=== PATIENT | female | born 1965 | race Caucasian/White ===

== ENCOUNTER 2016-08-14 07:36 | Day surgery (SDC) | payer OTHER ==
[2016-08-08 14:31] VITALS: BMI 22.0; BMI 32.0
--- NOTE | 2016-08-08 14:32 | PAT Medication Instructions ---
Service Date Aug 08, 2016. Current Home Medication List Acetaminophen Tab (Tylenol), 650 MG PO QID B-Complex W/ C & Folic Acid (Triphrocaps), 10 MG PO QAM Baclofen (Lioresal), 20 MG PO TID Bisacodyl (Dulcolax), 1 SUPP [place] PRN UD Calcium Carbonate (Tums), 2 TAB PO QID PRN for RN Carbidopa/Levodopa (Sinemet 25MG/100MG), 1 TAB PO TID Chlorhexidine Gluconate (Mouth (Peridex), 10 ML TOP QAM Clonazepam (Klonopin), 0.5 MG PO TID [place] Tar Extract (Dhs Tar), 1 DOSE TOP WEEKLY Escitalopram Oxalate (Escitalopram Oxalate), 1 TAB PO QAM Fentanyl (Fentanyl), 37 MCG TOP Q72HRS Gabapentin (Neurontin), 300 MG PO TID Magnesium Hydroxide (Milk Of Magnesia), 30 ML PO PRN UD Omeprazole (Prilosec), 20 MG PO BID Ondansetron Hcl (Zofran), 4 MG PO Q6H PRN for N Polyethylene Glycol 3350 (Miralax), 17 GM PO QAM Sodium Phosphates (Enema), 1 RE PRN UD Tizanidine (Zanaflex), 2 MG PO 3XDAY [Baby Shampoo], 1 DOSE TOP DAILY PRN for RN [Roll On Pain Gel], 1 DOSE TOP BID Medication Instructions For Your Scheduled Surgery Fentanyl (Fentanyl), 37 MCG TOP Q72HRS (continue as usual; avoid surgical area for placement) - Hold the following medications 24 hours prior to surgery: [Roll On Pain Gel], 1 DOSE TOP BID [Baby Shampoo], 1 DOSE TOP DAILY PRN for RN [place] Tar Extract (Dhs Tar), 1 DOSE TOP WEEKLY Chlorhexidine Gluconate (Mouth (Peridex), 10 ML TOP QAM - Hold the following medications the morning of surgery: Sodium Phosphates (Enema), 1 RE PRN UD Polyethylene Glycol 3350 (Miralax), 17 GM PO QAM Magnesium Hydroxide (Milk Of Magnesia), 30 ML PO PRN UD Bisacodyl (Dulcolax), 1 SUPP [place] PRN UD Calcium Carbonate (Tums), 2 TAB PO QID PRN for RN Baclofen (Lioresal), 20 MG PO TID B-Complex W/ C & Folic Acid (Triphrocaps), 10 MG PO QAM - Take the following medications the morning of surgery with a sip of water: Tizanidine (Zanaflex), 2 MG PO 3XDAY Omeprazole (Prilosec), 20 MG PO BID Ondansetron Hcl (Zofran), 4 MG PO Q6H PRN for N Gabapentin (Neurontin), 300 MG PO TID Escitalopram Oxalate (Escitalopram Oxalate), 1 TAB PO QAM Clonazepam (Klonopin), 0.5 MG PO TID Carbidopa/Levodopa (Sinemet 25MG/100MG), 1 TAB PO TID Acetaminophen Tab (Tylenol), 650 MG PO QID - Take the following medications as scheduled the night before surgery: Tizanidine (Zanaflex), 2 MG PO 3XDAY Sodium Phosphates (Enema), 1 RE PRN UD Omeprazole (Prilosec), 20 MG PO BID Ondansetron Hcl (Zofran), 4 MG PO Q6H PRN for N Magnesium Hydroxide (Milk Of Magnesia), 30 ML PO PRN UD Gabapentin (Neurontin), 300 MG PO TID Clonazepam (Klonopin), 0.5 MG PO TID Carbidopa/Levodopa (Sinemet 25MG/100MG), 1 TAB PO TID Bisacodyl (Dulcolax), 1 SUPP [place] PRN UD Calcium Carbonate (Tums), 2 TAB PO QID PRN for RN Baclofen (Lioresal), 20 MG PO TID B-Complex W/ C & Folic Acid (Triphrocaps), 10 MG PO QAM Acetaminophen Tab (Tylenol), 650 MG PO QID If you have any questions please call us at [phone] (Claudette Fisher PA-C) or [phone] or [phone]
--- NOTE | 2016-08-12 14:14 | HISTORY & PHYSICAL EXAMINATION ---
DATE OF ADMISSION: 08/12/2016 Special attention to left hand contracture. HISTORY OF PRESENT ILLNESS: Alise is several years status post a stroke. She notes progressive contracture in the left hand with the inability to use her hand. She presents with a clenched fist and difficulty doing hygiene with her left hand. She has no complaints of numbness. She is a known patient of mine and has been seen by me over the past several years. PAST MEDICAL HISTORY: Includes status post stroke. MEDICATIONS: Carvedilol/levodopa, losartan, baclofen, gabapentin, fentanyl patch, milk of magnesia, tizanidine, ondansetron, escitalopram, MiraLax, clonazepam, Dulcolax, chlorhexidine as needed, omeprazole, Tums, aspirin. PAST MEDICAL HISTORY: Arthritis, anemia, melanoma, history of cerebrovascular accident, depression, high blood pressure, GERD, shortness of breath, history of DVT in the left foot and footdrop bilaterally. PAST SURGICAL HISTORY: Gallbladder surgery. ALLERGIES: VICODIN, OXYCODONE, PERCOCET, TRAMADOL. PHYSICAL EXAMINATION HEART: Regular rate and rhythm. LUNGS: Clear to auscultation. EXTREMITIES: Left hand exam exhibits spastically clenched fist deformity. She can flex and extend the thumb. She has no active or passive extension of the fingers and they are stuck in a flexed posture. Wrist is held in about 45 degrees of extension and does show some tightness as well. She does have active motion at the thumb with flexion and extension. She does show partial active flexion of the fingers. Fingers are actively digging into the palm. ASSESSMENT: 1. Several years status post a stroke affecting left side. 2. Spastically left clenched fist deformity. PLAN: I discussed treatment options with her and the family, it is reasonable to consider a fractional lengthening of the left hand likely FDS and FDP tendons. Plan for surgical intervention hopefully under block with sedation. Physical therapy 10-14 days afterwards. I discussed with her and family that I would not make the hand normal but limited goal of the procedure would be to allow her to have improved hygiene. IVAN
[~2016-08-14] VITALS: Ht 154.9 cm; Wt 76.0 kg
[~2016-08-14 07:36] MED LIST: ACET325T96 PO; B-COCAP28 PO; BABY SHAMPOO TOP; BACL20TA PO; BISA10SU3 PR; CALC500C3 PO; CARB25TA12 PO; CHLO0.1222 TOP; CLON0.5T3 PO; COALSHA TOP; DRGTP25 TOP; GABA-113 PO; LACTATED RINGER'S 1000ML 1,000 ML IV SCH; LXP10 PO; MOML PO; ONDA4TAB46 PO; POLY335019 PO; PRLSR20 PO; SODI1ENE4 RE; TIZA2CAP PO; [UNRECOGNIZED DRUG - OTHER] TOP
--- NOTE | 2016-08-14 07:52 | History & Physical Bridge Note ---
H&P Re-Evaluation Bridge Note: I have examined the patient, reviewed the History & Physical and in the interval since the performance of the History & Physical I have noted the following changes of clinical significance: No changes noted
[2016-08-14 08:03] VITALS: BP 157/110; PULSE 80; TEMP 37; O2SAT 95; Ht 154.9 cm; Wt 76.0 kg
[2016-08-14] MEDS ORDERED: NURSING VERBAL MED ORDER STA (08:35)
[2016-08-14] MEDS ORDERED: ROPIVACAINE 0.5% 5 MG/ML 30 ML VIAL ONE (08:48)
[2016-08-14] MEDS ORDERED: MIDAZOLAM HCL 1 MG/ML 2ML VIAL ONE ×2 (08:52→09:31)
[2016-08-14] MEDS ORDERED: FENTANYL CITRATE INJ 50 MCG/1 ML 2 ML VIAL ONE (08:53)
--- NOTE | 2016-08-14 08:58 | Discharge Instructions ---
Discharge Instructions Date of Service Aug 14, 2016. Visit Reason for Visit: Left Hand Spastic Contracture Discharge Discharge Diagnosis / Problem: status post left hand spastic contracture Discharge Goals Goal(s): Decrease discomfort, Improve function, Increase independence Activity Recommendations Activity Limitations: per Instructions/Follow-up section Anesthesia . Post Anesthesia Instructions: If you have had General Anesthesia or IV Sedation: * Do not drive today. * Resume driving when surgeon permits. * Do not make important decisions or sign legal documents today. * Call surgeon for: 1. Temperature elevations greater than 101 degrees F. 2. Uncontrollable pain. 3. Excessive bleeding. 4. Persistent nausea and vomiting. 5. Medication intolerance (nausea, vomiting or rash). * For nausea and vomiting use only clear liquids such as: tea, soda, bouillon until nausea subsides, then gradually increase diet as tolerated. * If you have any concerns or questions, call your surgeon's office. If physician is unavailable and it is an emergency, call 911 or go to the nearest emergency room. . Instructions / Follow-Up Instructions / Follow-Up ACTIVITY RECOMMENDATIONS: * Avoid lifting anything heavier than a medium water glass until your first post operative visit. SPECIAL CARE INSTRUCTIONS: * Your bandage should be left in place until 10-14 days. * Some drainage onto the dressing may occur. This is normal. * If the bandage feels excessively tight, you may loosen the elastic bandage. Then call the physician's office for further instructions. * If possible, keep your hand elevated above the level of your heart for the first 2 post operative days. You may use a sling if necessary. * You should move your fingers regularly (50-100 motions per hour) unless otherwise instructed. SPECIAL PRECAUTIONS: * If you notice increased drainage, fever over 101 degrees F. or severe, unremitting pain, call your physician/office at . * You may have been prescribed pain medication. If you experience nausea and/or skin rash, discontinue this medication and contact our office for an alternative medication. FOLLOW UP VISIT: If appointment is not already scheduled: 10-14 day follow up with [address]. duran Please call [facility] to make a follow-up appointment after your surgery at . Diet Recommendations Recommended Home Diet: resume previous diet Pending Studies Studies pending at discharge: no Medical Emergencies . Who to Call and When: Medical Emergencies: If at any time you feel your situation is an emergency, please call 911 immediately. . Non-Emergent Contact Non-Emergency issues call your: Primary Care Provider . . "Provider Documentation" section prepared by Yenifer Garcia.
[2016-08-14] MEDS ORDERED: CEFAZOLIN 1000MG/55 ML D5W IV SCH (09:00)
[2016-08-14] MEDS ORDERED: BUPIVACAINE/EPINEPHRINE 0.25% 1:200,000 30 ML VIAL ONE (09:27)
[2016-08-14] MEDS ORDERED: ATROPINE SULFATE 0.1 MG/ML 5ML SYR IV PRN (09:30)
[2016-08-14] MEDS ORDERED: NURSING VERBAL MED ORDER ONE (09:30)
[2016-08-14] MEDS ORDERED: ONDANSETRON INJ 2 MG/ML 2 ML VIAL IV PRN (09:30)
[2016-08-14] MEDS ORDERED: EpHEDrine SULFATE INJ 50 MG/ML AMP IV PRN (09:30)
[2016-08-14] MEDS ORDERED: FENTANYL CITRATE INJ 50 MCG/1 ML 2 ML VIAL IV PRN (09:30)
[2016-08-14] MEDS ORDERED: PROPOFOL IV EMULSION 10 MG/ML 20 ML VIAL IV ONE (09:50)
[2016-08-14] MEDS ORDERED: ONDANSETRON INJ 2 MG/ML 2 ML VIAL ONE (09:50)
[2016-08-14] MEDS ORDERED: DEXAMETHASONE SOD INJ 4 MG/ML VIAL ONE (09:50)
[2016-08-14] MEDS ORDERED: LIDOCAINE HCL 2% 2 ML VIAL (20MG/ML) ONE (09:50)
[2016-08-14] MEDS ORDERED: CARBIDOPA/LEVODOPA 25/100MG TAB PO ONE (10:00)
--- NOTE | 2016-08-14 10:15 | [facility] Post Operative Brief Note ---
Immediate Operative Summary Operative Date Aug 14, 2016. Pre-Operative Diagnosis Spastically left clenched fist deformity Post-Operative Diagnosis Spastically left clenched fist deformity Procedure(s) Performed Fractional lengthening at left Flexor digitorum superficialis tendon and flexor digitorum profundus tendon Surgeon Dr Eng Teleprinter Surgeon(s) Yenifer Garcia PA-C Estimated Blood Loss 2ml Findings flexor tendon contracture Specimens None per surgeon Anesthesia regiuonal block and sedation Complication(s) None
--- NOTE | 2016-08-14 10:51 | OPERATIVE REPORT ---
DATE OF OPERATION: 08/14/2016 PREOPERATIVE DIAGNOSIS: 1. Left spastic contracture, clenched fist contracture. 2. Left flexor tendon spasticity and contracture. POSTOPERATIVE DIAGNOSIS: Same. PROCEDURES: 1. Left fractional lengthening flexor digitorum superficialis index finger, middle finger, ring finger, small finger. 2. Left fractional lengthening flexor digitorum profundus index finger, middle finger, ring finger, small finger. SURGEON: Dr. Eng. CONFERENCE RESERVATIONIST: Yenifer Garcia PA-C who was necessary for prepping, draping, retraction, exposure and closure. ANESTHESIA: Regional block with sedation. INDICATIONS: This is a female who is approximately 3 years status post stroke. She presents with clenched deformity with difficulty with hygiene. She does have some active volitional flexion of the fingers. The risks and benefits have been discussed including, but not limited to, risk of infection, nerve injury, stiffness, loss of motion, failure to improve, etc. The patient is agreeable and wishes to proceed. OPERATION AND FINDINGS: DESCRIPTION OF OPERATION: I made a longitudinal incision over the mid to distal aspect of the forearm. Dissection was carried down through the skin and subcutaneous tissue. The fascial layer sharply incised, sensory nerve branches and neurovascular structures were protected. I identified the flexor digitorum superficialis tendons. These were tight. I performed fractional lengthening at the musculotendinous junction of the index finger, middle finger, ring finger, small finger. This did result in improvement in extension. She did have significant tightness and I felt that the FDP tendons were a contributing factor. I then performed fractional lengthening at the musculotendinous junction of the index, middle, ring and small finger flexor digitorum profundus tendons. This did result in improvement. I was able to stretch the fingers such that she had near full extension and flexion contracture of the PIP and MP joints did result in significant improvement in ability to obtain better hygiene for the patient. Incision was irrigated, tourniquet was let down, hemostasis was obtained with bipolar electrocautery. Subcutaneous layer was closed with 4-0 Monocryl, running 3-0 Prolene stitch was used on the skin. Steri-Strips were applied. The patient was placed in a volar splint with the fingers in extension. Postoperative plan will be to begin range of motion with a forearm based brace beginning on postop day 10 to 14. I attest to the content of the Intraoperative Record and any orders documented therein. Any exceptio ns are noted below.
[2016-08-14] MEDS ORDERED: LABETALOL HCL IV 5 MG/ML 20ML ONE (11:01)
--- NOTE | 2016-08-14 11:58 | Anesthesiology Progress Note ---
Anesthesia Post Op Note Date & Time Aug 14, 2016 at 11:57 Vital Signs Pain Intensity: 2 Vital Signs Past 12 Hours Date Time Temp Pulse Resp B/P Pulse Ox O2 Delivery O2 Flow Rate FiO2 08/14/16 11:42 37.1 83 20 145/81 93 Room Air 08/14/16 11:41 83 15 08/14/16 11:41 82 15 171/90 93 08/14/16 11:36 83 15 08/14/16 11:36 84 15 92 08/14/16 11:34 145/81 08/14/16 11:31 84 13 08/14/16 11:31 84 13 164/106 92 08/14/16 11:26 79 12 08/14/16 11:26 82 12 159/83 92 08/14/16 11:21 80 14 153/108 92 08/14/16 11:21 81 14 08/14/16 11:17 166/106 08/14/16 11:16 83 15 08/14/16 11:16 84 15 92 08/14/16 11:15 201/96 08/14/16 11:11 79 17 91 08/14/16 11:11 79 17 08/14/16 11:10 197/100 08/14/16 11:06 78 12 08/14/16 11:06 79 12 195/113 92 08/14/16 11:01 77 15 08/14/16 11:01 76 15 91 08/14/16 10:56 78 16 93 08/14/16 10:56 78 16 08/14/16 10:55 171/113 08/14/16 10:53 194/95 08/14/16 10:51 81 17 93 08/14/16 10:51 81 17 08/14/16 10:50 183/100 08/14/16 10:46 81 13 95 08/14/16 10:46 82 13 08/14/16 10:45 170/99 08/14/16 10:44 151/113 08/14/16 10:41 73 15 08/14/16 10:41 73 15 99 08/14/16 10:40 144/111 08/14/16 10:36 76 10 08/14/16 10:36 76 10 99 08/14/16 10:35 152/96 08/14/16 10:31 81 14 94 08/14/16 10:31 88 14 08/14/16 10:26 79 18 08/14/16 10:26 79 18 100 08/14/16 10:25 151/105 08/14/16 10:22 157/72 08/14/16 10:21 275 18 08/14/16 10:21 36.9 85 16 130/72 98 Mask 08/14/16 10:21 82 18 99 08/14/16 08:03 37 80 20 157/110 95 Room Air Notes Mental Status: alert / awake / arousable, participated in evaluation Pt Amnestic to Procedure: Yes Nausea / Vomiting: adequately controlled Pain: adequately controlled Airway Patency, RR, SpO2: stable & adequate BP & HR: stable & adequate Hydration State: stable & adequate Anesthetic Complications: no major complications apparent
[2016-08-14 12:00] VITALS: BP 171/90; PULSE 88; TEMP 37.1; O2SAT 93
[2016-08-14 12:38] VITALS: BP 135/88; PULSE 86; TEMP 36.9; O2SAT 92
[2016-08-14 13:00] VITALS: BP 143/99; PULSE 92; TEMP 36.9; O2SAT 92
[2016-08-30] MEDS ORDERED: CLON0.5T3 PO (13:24)
[2016-08-30] MEDS ORDERED: LRS10 PO (13:24)
[2016-08-30] MEDS ORDERED: DRGTP12 TD (13:24)
[2016-08-30] MEDS ORDERED: DRGTP25 TOP (13:24)
[2016-08-30] MEDS ORDERED: AMOX500T PO (13:36)
[2017-01-01] MEDS ORDERED: B-COCAP21 PO (14:41)
[2017-01-01] MEDS ORDERED: DURAGESIC TOP (14:41)
[2017-01-01] MEDS ORDERED: FENT25DI10 TOP (14:41)
[2017-01-01] MEDS ORDERED: PRLSR20 PO (14:41)
[2017-01-01] MEDS ORDERED: BACL10TA PO (14:43)
[2017-01-01] MEDS ORDERED: ROPI0.5T15 PO (14:43)
[2017-01-01] MEDS ORDERED: CLON0.5T3 PO (14:44)
[2017-01-01] MEDS ORDERED: SODI1ENE RE (14:47)
[2017-01-01] MEDS ORDERED: AMLO-110 PO (14:47)
[2017-01-01] MEDS ORDERED: PROM12.57 PO (14:47)
[2017-01-01] MEDS ORDERED: NITR-5 PO (15:55)
== END 2016-08-14 13:10 | disposition home or self-care (01) ==
LOC: C.ACU 07:36
PROVIDERS: ATTEND Orthopaedic Surgery
DX: M62.838 Other muscle spasm (principal); Z86.73 Personal history of transient ischemic attack (TIA), and cerebral infarction without residual deficits; Z86.718 Personal history of other venous thrombosis and embolism; Z79.899 Other long term (current) drug therapy

== ENCOUNTER 2016-08-28 14:59 | Observation (INO) | payer OTHER ==
[~2016-08-28] VITALS: Ht 165.1 cm; Wt 71.6 kg
[~2016-08-28 14:59] MED LIST changes: -LACTATED RINGER'S 1000ML 1,000 ML IV SCH
--- NOTE | 2016-08-28 15:03 | EMERGENCY ROOM VISIT NOTE ---
History Report prepared by Blue: Senthil Mazariegos Under the Supervision of: Dr. Arnaldo Ling D.O. First contact with patient: 14:58 Chief Complaint: CHEST PAIN Stated Complaint: CHEST PAIN History of Present Illness The patient is a 51 year old female who presents to the Emergency Room via EMS with complaints of persistent chest pain that started prior to arrival today. She was at [facility] when the pain started. She rates the pain as a 10 out of 10 in severity. The patient is diaphoretic and is short of breath. She is shaking and coughing, and was feeling nauseous. The patient was given Aspirin, Nitro, and Morphine on route. She has never had a heart attack before. The patient has a history of strokes. She had a stress test and heart catheterization a long time ago. She also had a clot in her leg a long time ago. The patient is not on blood thinners. Source of History: patient, EMS Onset: Prior to arival today Position: chest Symptom Intensity: 10 out of 10 in severity Timing: other (persistent) Associated Symptoms: + cough, + diaphoresis, + nausea Note: Associated symptoms: Shaking. Review of Systems See HPI for pertinent positives & negatives. A total of 10 systems reviewed and were otherwise negative. Past Medical & Surgical Medical Problems: (1) CVA (cerebral vascular accident) (2) Depression (3) Dystonia musculorum deformans (4) Homocysteinemia (5) Hypertension (6) Tremor Family History Cancer Social History Marital Status: single Housing Status: [facility] Occupation Status: disabled Current/Historical Medications Scheduled Acetaminophen Tab (Tylenol), 650 MG PO QID B-Complex W/ C & Folic Acid (Triphrocaps), 10 MG PO QAM Baclofen (Lioresal), 10 MG PO TID Bisacodyl (Dulcolax), 1 SUPP [place] PRN UD Carbidopa/Levodopa (Sinemet 25MG/100MG), 1 TAB PO TID Chlorhexidine Gluconate (Mouth (Peridex), 10 ML TOP QAM Clonazepam (Klonopin), 0.5 MG PO TID [place] Tar Extract (Dhs Tar), 1 DOSE TOP WEEKLY Escitalopram Oxalate (Escitalopram Oxalate), 1 TAB PO QAM Fentanyl (Fentanyl), 37 MCG TOP Q72HRS Gabapentin (Gabapentin), 600 MG PO TID Magnesium Hydroxide (Milk Of Magnesia), 30 ML PO PRN UD Omeprazole (Prilosec), 20 MG PO BID Sodium Phosphates (Enema), 1 RE PRN UD Tizanidine (Zanaflex), 2 MG PO 3XDAY [Roll On Pain Gel], 1 DOSE TOP BID Scheduled PRN Ondansetron Hcl (Zofran), 4 MG PO Q6H PRN for N [Baby Shampoo], 1 DOSE TOP DAILY PRN for RN Allergies Coded Allergies: Pantoprazole (Unverified Allergy, Unknown, unknown, 08/28/16) Tapentadol (Unverified Allergy, Unknown, mental status change, 08/28/16) Tramadol (Unverified Allergy, Unknown, seritonin syndrome, 08/28/16) Acetaminophen (Verified Adverse Reaction, Intermediate, LISTED ON MED LIST A PRN MED FROM [facility], 08/28/16) Hydrocodone (Verified Adverse Reaction, Intermediate, "GETS NASTY", ) Agitation Oxycodone (Verified Adverse Reaction, Intermediate, "GETS NASTY", 08/28/16) Agitation Physical Exam Vital Signs Date Time Temp Pulse Resp B/P Pulse Ox O2 Delivery O2 Flow Rate FiO2 08/28/16 16:17 95 Room Air 08/28/16 16:08 95 Room Air 08/28/16 15:17 95 Room Air 08/28/16 15:17 37.2 97 20 148/101 95 Room Air Physical Exam GENERAL: Patient is awake, alert, anxious and uncomfortable appearing. EYES: The conjunctivae are clear. The pupils are round and reactive. EARS, NOSE, MOUTH AND THROAT: The nose is without any evidence of any deformity. Mucous membranes are moist tongue is midline NECK: The neck is nontender and supple. RESPIRATORY: Normal respiratory effort is noted there is no evidence of wheezing rhonchi or rales CARDIOVASCULAR: Regular rate and rhythm noted there no murmurs rubs or gallops normal S1 normal S2 GASTROINTESTINAL: The abdomen is soft. Bowel sounds are present in all quadrants. Abdomen is nontender MUSCULOSKELETAL/EXTREMITIES: Left upper extremity was in splint. Skin was warm and dry. Capillary refill symmetric in both upper extremities. SKIN: Trace pedal edema bilaterally. NEUROLOGIC: Patient is awake alert and oriented x3. Resting tremor was noted over upper extremities. Medical Decision & Procedures ER Provider Diagnostic Interpretation: X-ray results as stated below per interpretation by me and the radiologist. CHEST ONE VIEW PORTABLE CLINICAL HISTORY: Atypical chest pain COMPARISON STUDY: 01/27/2015 FINDINGS: The cardiac and mediastinal contours are normal. There is no evidence of focal pulmonary consolidation. There is no evidence of failure. No pleural effusions are visualized.[ There is a thoracolumbar levoscoliosis. IMPRESSION: No active disease in the chest. Electronically signed by: Nitin Almonte M.D. 08/28/2016 4:06 PM Dictated Date/Time: 08/28/2016 4:06 PM Laboratory Results 08/28/16 15:15 Red Blood Count 4.81, Mean Corpuscular Volume 91.5, Mean Corpuscular Hemoglobin 31.2, Mean Corpuscular Hemoglobin Concent 34.1, Mean Platelet Volume 10.0, Neutrophils (%) (Auto) 76.1, Lymphocytes (%) (Auto) 17.8, Monocytes (%) (Auto) 5.1, Eosinophils (%) (Auto) 0.4, Basophils (%) (Auto) 0.4, Neutrophils # (Auto) 3.90, Lymphocytes # (Auto) 0.91, Monocytes # (Auto) 0.26, Eosinophils # (Auto) 0.02, Basophils # (Auto) 0.02 08/28/16 15:15 Test 08/28/16 15:15 08/28/16 18:26 White Blood Count 5.12 K/uL (4.8-10.8) Red Blood Count 4.81 M/uL (4.2-5.4) Hemoglobin 15.0 g/dL (12.0-16.0) Hematocrit 44.0 % (37-47) Mean Corpuscular Volume 91.5 fL (80-100) Mean Corpuscular Hemoglobin 31.2 pg (25-34) Mean Corpuscular Hemoglobin Concent 34.1 g/dl (32-36) Platelet Count 242 K/uL (130-400) Mean Platelet Volume 10.0 fL (7.4-10.4) Neutrophils (%) (Auto) 76.1 % Lymphocytes (%) (Auto) 17.8 % Monocytes (%) (Auto) 5.1 % Eosinophils (%) (Auto) 0.4 % Basophils (%) (Auto) 0.4 % Neutrophils # (Auto) 3.90 K/uL (1.4-6.5) Lymphocytes # (Auto) 0.91 K/uL (1.2-3.4) Monocytes # (Auto) 0.26 K/uL (0.11-0.59) Eosinophils # (Auto) 0.02 K/uL (0-0.5) Basophils # (Auto) 0.02 K/uL (0-0.2) RDW Standard Deviation 41.2 fL (36.4-46.3) RDW Coefficient of Variation 12.2 % (11.5-14.5) Immature Granulocyte % (Auto) 0.2 % Immature Granulocyte # (Auto) 0.01 K/uL (0.00-0.02) Prothrombin Time 10.8 SECONDS (9.0-12.0) Prothromb Time International Ratio 1.0 (0.9-1.1) Activated Partial Thromboplast Time 31.6 SECONDS (21.0-31.0) Partial Thromboplastin Ratio 1.2 D-Dimer 220 ug/L FEU (0-500) Anion Gap 7.0 mmol/L (3-11) Est Creatinine Clear Calc Drug Dose 76.7 ml/min Estimated GFR () 90.0 Estimated GFR (Non- 77.7 BUN/Creatinine Ratio 17.8 (10-20) Calcium Level 9.3 mg/dl (8.5-10.1) Total Bilirubin 0.4 mg/dl (0.2-1) Direct Bilirubin 0.1 mg/dl (0-0.2) Aspartate Amino Transf (AST/SGOT) 29 U/L (15-37) Alanine Aminotransferase (ALT/SGPT) 22 U/L (12-78) Alkaline Phosphatase 101 U/L (45-117) Total Creatine Kinase 60 U/L (26-192) Creatine Kinase MB 1.4 ng/ml (0.5-3.6) Creatine Kinase MB Ratio 2.3 (0-3.0) Troponin I < 0.015 ng/ml (0-0.045) Total Protein 8.5 gm/dl (6.4-8.2) Albumin 4.0 gm/dl (3.4-5.0) Lipase 272 U/L (73-393) Laboratory results per my review. Medications Administered Medications (Trade) Dose Ordered Sig/Katheryn Route Start Time Stop Time Status Last Admin Dose Admin Morphine Sulfate (MoRPHine SULFATE INJ) 4 mg Q15M PRN IV 08/28/16 16:45 09/11/16 16:44 08/28/16 16:50 4 MG ECG Indication: chest pain Rate (beats per minute): 90 Rhythm: other (poor baseline noted secondary to patient tremor) Findings: other (questionable ST segment abnormalities in inferior leads, difficult to assess due to poor baseline) Comparison ECG Date: changes would be considered new compared to Jan 29 2015 Change: 2nd ECG: Normal sinus rhythm at 90 bpm, no ectopy, ST segment abnormalities are unchanged compared to earlier tracing. ED Course 1458: The patient was evaluated in room C10. A complete history and physical examination were performed. 1637: I reevaluated the patient and she is stable. 1645: Ordered Morphine Sulfate Inj 4 mg IV PRN. 171: I discussed the patient with Dr. Danny Willis field identification specialist - she will evaluate the patient for further treatment. 1716: Upon reevaluation, the patient is resting comfortably. I discussed results and treatment plan with her. She verbalizes agreement and understanding. The patient will be evaluated for further management and care. Medical Decision Differential diagnosis: Etiologies such as cardiac ischemia, aortic dissection, pulmonary embolism, pneumonia, pneumothorax, musculoskeletal, infections, pericarditis, myocarditis , esophageal rupture, gastrointestinal, as well as others were entertained. Nursing notes reviewed. The patient is a 51-year-old female who presented to the emergency apartment for an evaluation of left-sided chest pain. The patient has a history of tremor because of Parkinson's. The patient's EKG was very difficult to interpret but she had very significant pain and was diaphoretic. I do feel this could be cardiac in nature. Her initial cardiac biomarkers were negative. Because the patient's ongoing symptoms I discussed his case with the on-call [facility] hospitalist group. They have agreed to evaluate the patient in the emergency department for further management and disposition. I discussed the patient's laboratory radiographic studies with her as well as her family members. The patient was treated with aspirin and nitroglycerin and morphine by the prehospital personnel as well as in the emergency department. Consults Time Called: 1709 Consulting Physician: Dr. Danny Willis field identification specialist Returned Call: 1711 I discussed the patient with Dr. Danny Willis field identification specialist - she will evaluate the patient for further treatment. Impression Primary Impression: Left sided chest pain Additional Impression: Abnormal EKG Scribe Attestation The scribe's documentation has been prepared under my direction and personally reviewed by me in its entirety. I confirm that the note above accurately reflects all work, treatment, procedures, and medical decision making performed by me. Departure Information Dispostion Being Evaluated By Hospitalist Patient Instructions My [facility] Health Problem Qualifiers
[2016-08-28 15:40] LABS: BASO % 0.4 %; BASO ABS # 0.02 K/uL (0-0.2); COMPLETE YES; EOS % 0.4 %; IG% 0.2 %; LYMPH % 17.8 %; LYMPH ABS # 0.91 K/uL (1.2-3.4); MEAN CELL VOLUME 91.5 fL (80-100); MEAN CORPUSCULAR HEMOGLOBIN 31.2 pg (25-34); MEAN CORPUSCULAR HGB CONC 34.1 g/dl (32-36); MONO % 5.1 %; NEUT % 76.1 %; PLATELET COUNT 242 K/uL (130-400); RED BLOOD COUNT 4.81 M/uL (4.2-5.4); WHITE BLOOD COUNT 5.12 K/uL (4.8-10.8)
[2016-08-28] MEDS ORDERED: BACL10TA PO (15:41)
[2016-08-28] MEDS ORDERED: NRN600 PO (15:41)
[2016-08-28 15:51] LABS: ALT/SGPT 22 U/L (12-78); BLOOD UREA NITROGEN 16 mg/dl (7-18); BUN/CREATININE RATIO 17.8 (10-20); CALCIUM 9.3 mg/dl (8.5-10.1); CARBON DIOXIDE 28 mmol/L (21-32); CHLORIDE 103 mmol/L (98-107); CREATININE 0.87 mg/dl (0.60-1.20); GLUCOSE 173 mg/dl (70-99); POTASSIUM 4.1 mmol/L (3.5-5.1); SODIUM 138 mmol/L (136-145)
[2016-08-28 15:55] LABS: PARTIAL THROMBOPLASTIN RATIO 1.2; PROTHROMBIN TIME (PATIENT) 10.8 SECONDS (9.0-12.0)
[2016-08-28 15:56] LABS: ALKALINE PHOSPHATASE 101 U/L (45-117); AST/SGOT 29 U/L (15-37); CKMB/CK RATIO 2.3 (0-3.0)
--- NOTE | 2016-08-28 16:07 | DIAGNOSTIC IMAGING REPORT ---
CHEST ONE VIEW PORTABLE CLINICAL HISTORY: Atypical chest pain COMPARISON STUDY: 01/27/2015 FINDINGS: The cardiac and mediastinal contours are normal. There is no evidence of focal pulmonary consolidation. There is no evidence of failure. No pleural effusions are visualized.[ There is a thoracolumbar levoscoliosis. IMPRESSION: No active disease in the chest. Electronically signed by: Nitin Almonte M.D. 08/28/2016 4:06 PM Dictated Date/Time: 08/28/2016 4:06 PM
[2016-08-28] MEDS ORDERED: MoRPHine SULFATE 4 MG/ML 1 ML CARP\\VIAL IV PRN (16:45)
[2016-08-28] MEDS ORDERED: NITROGLYCERIN OINT 2% 1GM PACKET ONE (17:52)
[2016-08-28] MEDS ORDERED: POLYETHYLENE (MIRALAX) 17 GM PACK PO PRN (18:15)
[2016-08-28] MEDS ORDERED: MAGNESIUM HYDROXIDE SUSP 30 ML UDC PO PRN ×2 (18:15→18:30)
[2016-08-28] MEDS ORDERED: NITROGLYCERIN 0.4 MG SL PER TAB CHARGE SL PRN (18:15)
[2016-08-28] MEDS ORDERED: ALUMINUM/MAGNESIUM/SIMETH (MAALOX MAX) 30 ML UDC PO PRN (18:15)
--- NOTE | 2016-08-28 18:29 | History and Physical ---
History & Physical Date & Time of Service: Aug 28, 2016 at 18:28 Chief Complaint: Chest Pain Primary Care Physician: Ivania Bender M.D. 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 Pt had surgery on her left hand by Dr duran on 08/14/16 for spastic contracture - schedule to see for Post op Follow up at [facility] office today at the office pt developed substernal chest pain /heaviness , diaphoretic , tremulous, SOB given SL nitro with no relief on the way to [facility] -pt received IV morphine , Full strength aspirin , nitro spray during my time of evaluation -pt was diaphoretic , very anxious , continued to have significant tremor complaining of chest pain /SOB -ordered for Nitro Paste pulse Ox remained in 96 % in RA sinus tach Lab work ,chest xray is unremarkable EKG poor baseline for continued tremor D Dimer wnl pt will be admitted to Tele on observation status for further work up for Chest pain /SOB Past Medical/Surgical History Medical Problems: (1) CVA (cerebral vascular accident) Status: Chronic (2) Depression Status: Chronic (3) Dystonia musculorum deformans Status: Chronic (4) Homocysteinemia Status: Chronic (5) Hypertension Status: Chronic (6) Tremor Status: Chronic Family History Cancer Social History Smoking Status: Never Smoker Marital Status: single Occupational Status: disabled Allergies Coded Allergies: Pantoprazole (Unverified Allergy, Unknown, unknown, 08/28/16) Tapentadol (Unverified Allergy, Unknown, mental status change, 08/28/16) Tramadol (Unverified Allergy, Unknown, seritonin syndrome, 08/28/16) Acetaminophen (Verified Adverse Reaction, Intermediate, LISTED ON MED LIST A PRN MED FROM [facility], 08/28/16) Hydrocodone (Verified Adverse Reaction, Intermediate, "GETS NASTY", ) Agitation Oxycodone (Verified Adverse Reaction, Intermediate, "GETS NASTY", 08/28/16) Agitation Home Medications Scheduled Acetaminophen Tab (Tylenol), 650 MG PO QID B-Complex W/ C & Folic Acid (Triphrocaps), 10 MG PO QAM Baclofen (Lioresal), 10 MG PO TID Bisacodyl (Dulcolax), 1 SUPP WV PRN UD Carbidopa/Levodopa (Sinemet 25MG/100MG), 1 TAB PO TID Chlorhexidine Gluconate (Mouth (Peridex), 10 ML TOP QAM Clonazepam (Klonopin), 0.5 MG PO TID Blount Tar Extract (Dhs Tar), 1 DOSE TOP WEEKLY Escitalopram Oxalate (Escitalopram Oxalate), 1 TAB PO QAM Fentanyl (Fentanyl), 37 MCG TOP Q72HRS Gabapentin (Gabapentin), 600 MG PO TID Magnesium Hydroxide (Milk Of Magnesia), 30 ML PO PRN UD Omeprazole (Prilosec), 20 MG PO BID Sodium Phosphates (Enema), 1 RE PRN UD Tizanidine (Zanaflex), 2 MG PO 3XDAY [Roll On Pain Gel], 1 DOSE TOP BID Scheduled PRN Ondansetron Hcl (Zofran), 4 MG PO Q6H PRN for N [Baby Shampoo], 1 DOSE TOP DAILY PRN for curer foam rubber of Systems Constitutional: + weakness Respiratory: + shortness of breath Cardiovascular: + chest pain Musculoskeletal: + problem reported (chronic muscle spascity ) Neurologic: + paralysis (rt hemiplageia , chronic tremor , muscle spascitity ) Psychiatric: + anxiety Physical Exam Vital Signs Date Time Temp Pulse Resp B/P Pulse Ox O2 Delivery O2 Flow Rate FiO2 08/28/16 16:17 95 Room Air 08/28/16 16:08 95 Room Air 08/28/16 15:17 95 Room Air 08/28/16 15:17 37.2 97 20 148/101 95 Room Air General Appearance: + moderate distress (anxious /diaphoretic , ) Head: normocephalic, atraumatic Eyes: normal inspection Neck: supple, no carotid bruits, trachea midline Respiratory/Chest: chest non-tender, lungs clear, normal breath sounds, no respiratory distress Cardiovascular: no edema, no JVD, + tachycardia Abdomen/GI: normal bowel sounds, non tender, soft Extremities/Musculoskelatal: + pertinent finding (left hand in bandage for recent surgery /contructure on rt hand /bilateral brace on lower ext ) Neurologic/Psych: + pertinent finding (increased tremor , muscle spascitiy , left hemiplegia ) Skin: + pertinent finding (diaphoretic ) Diagnostics Laboratory Results Results Past 24 Hours Test 08/28/16 15:15 08/28/16 18:26 Range/Units White Blood Count 5.12 4.8-10.8 K/uL Red Blood Count 4.81 4.2-5.4 M/uL Hemoglobin 15.0 12.0-16.0 g/dL Hematocrit 44.0 37-47 % Mean Corpuscular Volume 91.5 80-100 fL Mean Corpuscular Hemoglobin 31.2 25-34 pg Mean Corpuscular Hemoglobin Concent 34.1 32-36 g/dl Platelet Count 242 130-400 K/uL Mean Platelet Volume 10.0 7.4-10.4 fL Neutrophils (%) (Auto) 76.1 % Lymphocytes (%) (Auto) 17.8 % Monocytes (%) (Auto) 5.1 % Eosinophils (%) (Auto) 0.4 % Basophils (%) (Auto) 0.4 % Neutrophils # (Auto) 3.90 1.4-6.5 K/uL Lymphocytes # (Auto) 0.91 1.2-3.4 K/uL Monocytes # (Auto) 0.26 0.11-0.59 K/uL Eosinophils # (Auto) 0.02 0-0.5 K/uL Basophils # (Auto) 0.02 0-0.2 K/uL RDW Standard Deviation 41.2 36.4-46.3 fL RDW Coefficient of Variation 12.2 11.5-14.5 % Immature Granulocyte % (Auto) 0.2 % Immature Granulocyte # (Auto) 0.01 0.00-0.02 K/uL Prothrombin Time 10.8 9.0-12.0 SECONDS Prothromb Time International Ratio 1.0 0.9-1.1 Activated Partial Thromboplast Time 31.6 21.0-31.0 SECONDS Partial Thromboplastin Ratio 1.2 D-Dimer 220 0-500 ug/L FEU Sodium Level 138 136-145 mmol/L Potassium Level 4.1 3.5-5.1 mmol/L Chloride Level 103 98-107 mmol/L Carbon Dioxide Level 28 21-32 mmol/L Anion Gap 7.0 3-11 mmol/L Blood Urea Nitrogen 16 7-18 mg/dl Creatinine 0.87 0.60-1.20 mg/dl Est Creatinine Clear Calc Drug Dose 76.7 ml/min Estimated GFR () 90.0 Estimated GFR (Non- 77.7 BUN/Creatinine Ratio 17.8 10-20 Random Glucose 173 70-99 mg/dl Calcium Level 9.3 8.5-10.1 mg/dl Total Bilirubin 0.4 0.2-1 mg/dl Direct Bilirubin 0.1 0-0.2 mg/dl Aspartate Amino Transf (AST/SGOT) 29 15-37 U/L Alanine Aminotransferase (ALT/SGPT) 22 12-78 U/L Alkaline Phosphatase 101 45-117 U/L Total Creatine Kinase 60 26-192 U/L Creatine Kinase MB 1.4 0.5-3.6 ng/ml Creatine Kinase MB Ratio 2.3 0-3.0 Troponin I < 0.015 0-0.045 ng/ml Total Protein 8.5 6.4-8.2 gm/dl Albumin 4.0 3.4-5.0 gm/dl Lipase 272 73-393 U/L CXR normal EKG poor data quality for tremor sinus tach with Frequent PVC Qtc 523 Impression Assessment and Plan CHEST PAIN : rule out ACS observation in Tele , ordered for serial cardiac markers ECHO to assess LV function D Dimer negative ; low suspicion for PE Or DVT PROLONG QTC ; avoid medication may cause prolong Qtc -Zofran , Haldol etc monitor in tele daily equipment monitor phototypesetting lytes -K , mg INCREASED TREMOR /HX OF PARKINSON'S DISEASE : due to anxiety ? pt is continued with Sinemet Neurology consulted -pt follows with Dr Hanna CHRONIC MUSCLE SPASTICITY cont Baclofen ANXIETY DISORDER : Ativan on Lexapro GERD : cont Omeprazole RECENT LEFT HAND SURGERY : s/p lengthening of left flexor digitorum superficialis of index finger and flexor digitorum profundus of index finger by Dr Duran on 08/14/16 pain control FULL CODE : D/w Pt as per Bi Fernandez -pt has Advanced directive -DNR Pt wants to have resusciationve attempt to be done if there is reasonable chance for recovery Mother present at bed side -in agreement DVT PROPHYLAXIS : moderate to high risk Sub q heparin DISPOSITION : resident at [facility] PT/OT eval social service for discharge planning Medicine follow up with Ivania Mcdonald MD at [facility] Level of Care Telemetry Resuscitation Status FULL RESUSCITATION VTE Prophylaxis VTE Risk Assessment Done? Y/N: Yes Risk Level: High Given or contraindicated: Unfractionated heparin SQ
[2016-08-28] MEDS ORDERED: [UNRECOGNIZED DRUG - OTHER] TOP SCH (18:30)
[2016-08-28] MEDS ORDERED: BISACODYL 10 MG SUPP PR PRN (18:30)
[2016-08-28] MEDS ORDERED: BABY SHAMPOO TOP PRN (18:30)
[2016-08-28] MEDS: HYDROmorphone INJ 0.5 MG/0.5 ML SYR IV PRN (19:21)
[2016-08-28] MEDS ORDERED: IV FLUIDS COMPLETED PRN (19:30)
[2016-08-28 20:29] VITALS: BP 140/82; PULSE 99; TEMP 37.2; O2SAT 96; Ht 165.1 cm; Wt 71.6 kg
[2016-08-28] MEDS ORDERED: [UNRECOGNIZED DRUG - OTHER] TOP SCH (21:00)
[2016-08-28] MEDS: ACETAMINOPHEN 325 MG TAB PO SCH (21:17)
[2016-08-28] MEDS: BACLOFEN 10 MG TAB PO SCH (21:17)
[2016-08-28] MEDS: CARBIDOPA/LEVODOPA 25/100MG TAB PO SCH (21:18)
[2016-08-28] MEDS: GABAPENTIN 600 MG TAB PO SCH (21:18)
[2016-08-28] MEDS: CLONAZEPAM 0.5 MG TAB PO SCH (21:20)
[2016-08-28] MEDS: HEPARIN SOD 5000 UNIT/0.5 ML CARP SQ SCH (21:26)
[2016-08-28] MEDS: CHECK FENTANYL PATCH PLACEMENT SCH (23:18)
[2016-08-28 23:47] VITALS: BP 138/87; PULSE 79; TEMP 36.9; O2SAT 94
[2016-08-29] VITALS (8 sets, daily range): BP systolic 130–179; BP diastolic 85–102; PULSE 63–85; TEMP 36.4–37; O2SAT 94–97
[2016-08-29 01:55] LABS: CKMB/CK RATIO 3.7 (0-3.0)
[2016-08-29] MEDS: HYDROmorphone INJ 0.5 MG/0.5 ML SYR IV PRN ×5 (03:19→21:00)
[2016-08-29] MEDS ORDERED: BACLOFEN 10 MG TAB PO ONE (04:08)
[2016-08-29] MEDS: HEPARIN SOD 5000 UNIT/0.5 ML CARP SQ SCH ×3 (05:41→21:07)
[2016-08-29] MEDS ORDERED: HYDROmorphone INJ 0.5 MG/0.5 ML SYR IV ONE (05:51)
[2016-08-29] MEDS: GABAPENTIN 600 MG TAB PO SCH ×3 (08:09→21:01)
[2016-08-29] MEDS: BACLOFEN 10 MG TAB PO SCH ×3 (08:09→21:01)
[2016-08-29] MEDS: ACETAMINOPHEN 325 MG TAB PO SCH ×4 (08:11→21:00)
[2016-08-29] MEDS: ESCITALOPRAM OXALATE 10 MG TAB PO SCH (08:12)
[2016-08-29] MEDS: CARBIDOPA/LEVODOPA 25/100MG TAB PO SCH ×3 (08:12→21:01)
[2016-08-29] MEDS: NEPHROCAPS PO SCH (08:12)
[2016-08-29] MEDS: CHECK FENTANYL PATCH PLACEMENT SCH ×2 (08:13→16:05)
[2016-08-29] MEDS: CLONAZEPAM 0.5 MG TAB PO SCH ×3 (08:22→20:57)
[2016-08-29] MEDS: SODIUM CHLORIDE 0.9% 1000ML 1,000 ML IV SCH ×2 (08:24→18:12)
[2016-08-29 09:34] LABS: BUN/CREATININE RATIO 17.5 (10-20); CALCIUM 9.3 mg/dl (8.5-10.1); CREATININE 0.77 mg/dl (0.60-1.20); MAGNESIUM 2.4 mg/dl (1.8-2.4); POTASSIUM 3.8 mmol/L (3.5-5.1)
[2016-08-29 09:39] LABS: CKMB/CK RATIO 3.3 (0-3.0)
--- NOTE | 2016-08-29 09:56 | Neurology Consultation ---
Neurology Consultation Date of Consultation: Aug 29, 2016. Attending Physician: Sofia Rosenbaum M.D. Primary Care Physician: Ivania Bender M.D. Reason for Consultation: Spasticity, tremor History of Present Illness Source: patient, family, clinic records, hospital records The patient is a 51-year-old female who I have been following his October 2013 for chronic spasticity and tremor potentially related to a pontine ischemic stroke or demyelinating event that occurred in July 2010. She has exhibited fairly generalized spasticity, greater on the left and has superimposed flexor spasms and contractures of the left hand and upper limb as well as chronic equinovarus posturing of the foot and ankles related to spasticity. She underwent Achilles lengthening surgery a few years ago which provided modest improvement. However, she has not really been able to walk and has been confined to a wheelchair. She recently underwent surgery to correct a chronic contracture of the left hand and was in her orthopedist's office yesterday when she developed chest pain. She was brought to the emergency department for further evaluation. In addition to the above issues with chronic spasticity and contractures, she has exhibited an intermittent, rest and action tremor primarily affecting the right upper limb. The intensity of this tremor has fluctuated, is often worse when attention is brought to it, and attenuates with specific tasks such as finger to nose. She complains of associated muscle spasms affecting the right upper extremity, although not as severe as the left. She reports that she has been unable to feed herself with the right hand due to her persistent tremor and spasms. The patient indicates that her symptoms have gotten worse recently. She has been living in a mcc and her mother reports there have been some ongoing difficulties pertaining to her daily care and inability to feed herself. The patient's mother feels that a higher level of care would be beneficial and expresses a desire to have her daughter returned to the [facility]. Furthermore, this patient has been extensively evaluated by multiple subspecialists previously including other general neurologists, a movement disorder specialist, an MS specialist at [facility], rheumatology, physical medicine and rehabilitation, and orthopedics. She has had a full evaluation in the context of possible multiple sclerosis at [facility]. She underwent a lumbar puncture and has had imaging of the spinal cord as well. She was not felt to have multiple sclerosis on the basis of her clinical history and test results. The rheumatological evaluation was unrevealing. The idea of Parkinson's disease or a parkinsonian variant was potentially offered as a diagnosis but not strongly supported by her clinical history, examination, and testing. Nonetheless, she was given a trial of Sinemet and perceived some subjective symptomatic improvement. She has remained on a low dosage of this medication. I believe a previous attempt at discontinuing the Sinemet was not well tolerated. She has also been evaluated for placement of a baclofen pump in the past. She was given an injection of intrathecal baclofen in June 2015 with pain management at [facility]. However, I do not believe she responded very well to this treatment and I do not think the procedure was pursued any further. In addition to the above-mentioned low dose of Sinemet, this patient is also prescribed oral baclofen, gabapentin, and Zanaflex for management of her chronic spasticity and associated pain. The benefits of these medications has been minimal. Past Medical/Surgical History Medical Problems: (1) Abnormal EKG Status: Acute (2) Left sided chest pain Status: Acute Family History No known family history of neurodegenerative disease or movement disorder that would be of direct relevance to this patient's neurological condition Social History Marital Status: single Housing Status: mcc Occupation Status: disabled Allergies Coded Allergies: Pantoprazole (Unverified Allergy, Unknown, unknown, 08/28/16) Tapentadol (Unverified Allergy, Unknown, mental status change, 08/28/16) Tramadol (Unverified Allergy, Unknown, seritonin syndrome, 08/28/16) Acetaminophen (Verified Adverse Reaction, Intermediate, LISTED ON MED LIST A PRN MED FROM [facility], 08/28/16) Hydrocodone (Verified Adverse Reaction, Intermediate, "GETS NASTY", ) Agitation Oxycodone (Verified Adverse Reaction, Intermediate, "GETS NASTY", 08/28/16) Agitation Current Inpatient Medications Current Inpatient Medications Medications (Trade) Dose Ordered Sig/Katheryn Route Start Time Stop Time Status Last Admin Dose Admin Heparin Sodium (Porcine) (Heparin Sq 5000 Unit/0.5ml) 5,000 unit Q8 SQ 08/28/16 22:00 09/27/16 21:59 08/29/16 05:41 5,000 UNIT Al Hydrox/Mg Hydrox/Simethicone (Maalox Max Susp) 15 ml Q4H PRN PO 08/28/16 18:15 09/27/16 18:14 Nitroglycerin (Nitrostat Tab) 0.4 mg UD PRN SL 08/28/16 18:15 09/27/16 18:14 Polyethylene (Miralax Powder Packet) 17 gm DAILY PRN PO 08/28/16 18:15 09/27/16 18:14 Hydromorphone HCl (Dilaudid Inj) 0.5 mg Q6 PRN IV 08/28/16 18:15 08/29/16 06:00 0.5 MG Acetaminophen (Tylenol Tab) 650 mg QID PO 08/28/16 21:00 09/27/16 20:59 08/29/16 08:11 650 MG Vitamin B Complex/ Vit C/Folic Acid (Nephrocaps) 1 cap QAM PO 08/29/16 09:00 09/28/16 08:59 08/29/16 08:12 1 CAP Baclofen (Lioresal Tab) 10 mg TID PO 08/28/16 21:00 09/28/16 20:59 08/29/16 08:09 10 MG Bisacodyl (Dulcolax Supp) 10 mg DAILY PRN NC 08/28/16 18:30 09/27/16 18:29 Carbidopa/Levodopa (Sinemet 25/ 100MG Tab) 1 tab TID PO 08/28/16 21:00 09/27/16 20:59 08/29/16 08:12 1 TAB Clonazepam (Klonopin Tab) 0.5 mg TID PO 08/28/16 21:00 09/27/16 20:59 08/29/16 08:22 0.5 MG Escitalopram Oxalate (Lexapro Tab) 10 mg QAM PO 08/29/16 09:00 09/28/16 08:59 08/29/16 08:12 10 MG Fentanyl (Duragesic Patch) 25 mcg Q3D@0900 TD 08/31/16 09:00 09/14/16 08:59 Gabapentin (Neurontin Tab) 600 mg TID PO 08/28/16 21:00 09/27/16 20:59 08/29/16 08:09 600 MG Magnesium Hydroxide (Milk Of Magnesia Susp) 30 ml Q6 PRN PO 08/28/16 18:30 09/27/16 18:29 08/28/16 19:21 30 ML Tizanidine HCl (Zanaflex Tab) 2 mg TID@0000,0800,1600 PO 08/29/16 00:00 09/28/16 00:00 08/29/16 08:10 2 MG Miscellaneous Information (Order Awaiting Action) 1 ea QS N/A 08/29/16 00:00 09/28/16 00:00 Miscellaneous (Iv Fluids Completed) 1 ea PRN PRN N/A 08/28/16 19:30 08/28/17 19:29 Fentanyl (Duragesic Patch) 12 mcg Q3D@0900 TD 08/31/16 09:00 09/14/16 08:59 Miscellaneous (Fentanyl Patch Remove & Waste) 1 ea Q3D@0859 N/A 08/31/16 08:59 09/30/16 08:58 Miscellaneous Information 1 ea 1 ea QS N/A 08/29/16 00:00 09/28/16 00:00 08/29/16 08:13 1 EA Sodium Chloride (Nss 1000ml) 1,000 ml @ 100 mls/hr Q10H IV 08/29/16 07:45 09/28/16 07:44 08/29/16 08:24 100 MLS/HR Review of Systems The patient denies fever, chills, vision loss, diplopia, hearing loss, vertigo, abdominal pain, diarrhea, dysuria, rashes, skin lesions, swollen glands, or abnormal bruising or bleeding. She has complained of chest pain, shortness of breath, diaphoresis, muscle pain and spasms and associated joint pain. She endorses a feeling of anxiety. A full 10 point review of systems was obtained from this patient and is as described in the history of present illness and otherwise listed above. Physical Exam Vital Signs (Past 24 Hrs): Date Time Temp Pulse Resp B/P Pulse Ox O2 Delivery O2 Flow Rate FiO2 08/29/16 07:28 36.7 83 18 179/102 97 Room Air 08/29/16 04:00 Room Air 08/29/16 00:00 Room Air 08/28/16 23:47 36.9 79 20 138/87 94 Room Air 08/28/16 20:29 37.2 99 16 140/82 96 Room Air 08/28/16 19:16 107 20 180/118 98 Room Air 08/28/16 18:00 103 20 194/98 97 Room Air 08/28/16 16:53 100 20 185/120 98 Room Air 08/28/16 16:17 95 Room Air 08/28/16 16:08 95 Room Air 08/28/16 15:17 95 Room Air 08/28/16 15:17 37.2 97 20 148/101 95 Room Air 08/28/16 15:16 99 20 148/101 99 Room Air The patient is an obese, chronically ill appearing, middle-aged female. She is lying in bed and appears modestly uncomfortable. Her mother is at bedside. The patient is alert and oriented to person place and time. Attention and concentration are normal. She is able to name objects, repeat phrases, and reads text without difficulty. She exhibits non-dysarthric, fluent speech. Recent and remote memory intact. Vocabulary normal. Visual clement full to confrontation. Visual acuity normal. Pupils equal round reactive to light and accommodation. Eye movements normal. There is no nystagmus. Facial sensation intact bilaterally. There is no facial droop. There is normal facial symmetry and strength. Palate elevates to midline. Tongue protrudes to midline. Shoulder shrug strength intact bilaterally. Hearing intact bilaterally. Sensation is intact to vibration, temperature, light touch, and proprioception for all 4 limbs. The patient is unable to perform finger to nose or heel to friend with the left upper extremity as well as both lower extremities due to chronic spasticity. She performs finger to nose with the right upper extremity fairly well although does exhibit an intermittent rest and action tremor of this limb that is distractible end of variable intensity. She does not have gross end point tremor or ataxia for the right hand. Deep tendon reflexes are brisk for the arms and legs symmetrically. Plantar responses upgoing bilaterally. Ophthalmoscopic examination reveals normal-appearing optic nerves and posterior elements. No papilledema, no hemorrhages. Carotid pulses normal, no bruits to auscultation. Musculoskeletal examination is limited due to patient's chronic, generalized spasticity, contractures, and probable deconditioning. She exhibits moderate weakness of both lower extremities although is able to resist gravity and I would estimate her strength is probably 3 out of 5 for the lower limbs. Left upper extremity strength cannot really be tested as she has significant, chronic, spastic contracture of this limb and has recently undergone an orthopedic seizure to the left hand to address this chronic contracture. Attempts at movement provoke moderate pain. Strength for the right upper extremity is probably 4 out of 5. There is no atrophy. No fasciculations observed. There is an intermittent rest and action tremor involving the right upper extremity. The tremor does not have a pill-rolling quality and seems to be distractible. The tremor diminishes with certain tasks such as finger to nose for the right hand. It does not have an emergent quality with sustained posture. Gait cannot be tested. Laboratory Results Past 24 Hours: 08/28/16 15:15 Red Blood Count 4.81, Mean Corpuscular Volume 91.5, Mean Corpuscular Hemoglobin 31.2, Mean Corpuscular Hemoglobin Concent 34.1, Mean Platelet Volume 10.0, Neutrophils (%) (Auto) 76.1, Lymphocytes (%) (Auto) 17.8, Monocytes (%) (Auto) 5.1, Eosinophils (%) (Auto) 0.4, Basophils (%) (Auto) 0.4, Neutrophils # (Auto) 3.90, Lymphocytes # (Auto) 0.91, Monocytes # (Auto) 0.26, Eosinophils # (Auto) 0.02, Basophils # (Auto) 0.02 Test 08/28/16 15:15 08/28/16 18:26 08/29/16 08:08 08/29/16 08:49 White Blood Count 5.12 K/uL (4.8-10.8) Red Blood Count 4.81 M/uL (4.2-5.4) Hemoglobin 15.0 g/dL (12.0-16.0) Hematocrit 44.0 % (37-47) Mean Corpuscular Volume 91.5 fL (80-100) Mean Corpuscular Hemoglobin 31.2 pg (25-34) Mean Corpuscular Hemoglobin Concent 34.1 g/dl (32-36) Platelet Count 242 K/uL (130-400) Mean Platelet Volume 10.0 fL (7.4-10.4) Neutrophils (%) (Auto) 76.1 % Lymphocytes (%) (Auto) 17.8 % Monocytes (%) (Auto) 5.1 % Eosinophils (%) (Auto) 0.4 % Basophils (%) (Auto) 0.4 % Neutrophils # (Auto) 3.90 K/uL (1.4-6.5) Lymphocytes # (Auto) 0.91 K/uL (1.2-3.4) Monocytes # (Auto) 0.26 K/uL (0.11-0.59) Eosinophils # (Auto) 0.02 K/uL (0-0.5) Basophils # (Auto) 0.02 K/uL (0-0.2) RDW Standard Deviation 41.2 fL (36.4-46.3) RDW Coefficient of Variation 12.2 % (11.5-14.5) Immature Granulocyte % (Auto) 0.2 % Immature Granulocyte # (Auto) 0.01 K/uL (0.00-0.02) Prothrombin Time 10.8 SECONDS (9.0-12.0) Prothromb Time International Ratio 1.0 (0.9-1.1) Activated Partial Thromboplast Time 31.6 SECONDS (21.0-31.0) Partial Thromboplastin Ratio 1.2 D-Dimer 220 ug/L FEU (0-500) Est Creatinine Clear Calc Drug Dose 76.7 ml/min Total Bilirubin 0.4 mg/dl (0.2-1) Direct Bilirubin 0.1 mg/dl (0-0.2) Aspartate Amino Transf (AST/SGOT) 29 U/L (15-37) Alanine Aminotransferase (ALT/SGPT) 22 U/L (12-78) Alkaline Phosphatase 101 U/L (45-117) Total Protein 8.5 gm/dl (6.4-8.2) Albumin 4.0 gm/dl (3.4-5.0) Lipase 272 U/L (73-393) Creatine Kinase MB Ratio (0-3.0) Date/Time Source Procedure Growth Status 08/29/16 04:15 Nasal MRSA DNA Surveillance Screen - Final Specimen Negative for MRSA by DNA Probe Complete Impression Chronic generalized spasticity, greater on the left, with associated dystonia and contractures of the left hand and equinovarus posturing of the foot and ankles. She has a history of Achilles tendon lengthening surgery as well as a more recent surgery to the left hand to correct a chronic contracture. This patient also has an associated dystonic tremor which primarily affects the right upper extremity and is described in the history of present illness. Her clinical history and examination are not suggestive of Parkinson's disease. The cause of her chronic spasticity, contractures, dystonia, and associated tremor is not entirely clear. However, a pontine stroke occurring in July 2010 has been considered the most likely diagnosis. A demyelinating disorder may not be completely excluded in spite of her previous extensive evaluations. The differential diagnosis could also include a neurodegenerative disease such as olivopontocerebellar atrophy or another multiple systems atrophy variant, atypical parkinsonian syndrome and spinocerebellar atrophy. These neurodegenerative conditions are probably much less likely based on her clinical presentation, examination findings, and previous testing. Plan I would like this patient to have an up-to-date brain and cervical spine MRI to assess for any significant interval change in the previously identified pontomedullary hyperintensities as well as screen for additional foci of signal change that may suggest a demyelinating disorder. This patient may remain on gabapentin, baclofen, and tizanidine to address her chronic spasticity. The dosage of baclofen can be increased to 15 mg 3 times per day. As described in the history of present illness, however, I think treatment options are going to be rather limited. PT/OT
[2016-08-29] MEDS ORDERED: HYDROmorphone INJ 0.5 MG/0.5 ML SYR IV STA (11:28)
--- NOTE | 2016-08-29 20:03 | Progress Note ---
Internal Med Progress Note Date of Service: Aug 29, 2016. Provider Documentation: SUBJECTIVE: [] OBJECTIVE: Vital Signs-as noted below Exam: General-[] Eyes-[] ENT-[] Neck-[] Lungs-[] Heart-[] Abdomen-[] Extremities-[] Neuro-[] Lab data as noted below. ASSESSMENT & PLAN: [] DVT PROPHYLAXIS [] DISPOSITION [] Vital Signs: Date Time Temp Pulse Resp B/P Pulse Ox O2 Delivery O2 Flow Rate FiO2 08/29/16 19:43 37.0 74 18 130/90 96 Room Air 08/29/16 16:00 94 Room Air 08/29/16 15:10 36.7 82 18 153/89 94 Room Air 08/29/16 12:00 Room Air 08/29/16 11:28 36.4 77 18 161/102 95 Room Air 08/29/16 10:12 85 148/102 08/29/16 08:00 Room Air 08/29/16 07:28 36.7 83 18 179/102 97 Room Air 08/29/16 04:00 Room Air 08/29/16 00:00 Room Air 08/28/16 23:47 36.9 79 20 138/87 94 Room Air Lab Results: Results Past 24 Hours Test 08/29/16 01:10 08/29/16 07:37 08/29/16 08:49 Range/Units Total Creatine Kinase 461 704 26-192 U/L Creatine Kinase MB 16.9 23.2 0.5-3.6 ng/ml Creatine Kinase MB Ratio 3.7 3.3 0-3.0 Troponin I < 0.015 < 0.015 0-0.045 ng/ml Sodium Level 139 136-145 mmol/L Potassium Level 3.8 3.5-5.1 mmol/L Chloride Level 103 98-107 mmol/L Carbon Dioxide Level 28 21-32 mmol/L Anion Gap 8.0 3-11 mmol/L Blood Urea Nitrogen 14 7-18 mg/dl Creatinine 0.77 0.60-1.20 mg/dl Est Creatinine Clear Calc Drug Dose 86.5 ml/min Estimated GFR () 104.3 Estimated GFR (Non- 90.0 BUN/Creatinine Ratio 17.5 10-20 Random Glucose 112 70-99 mg/dl Calcium Level 9.3 8.5-10.1 mg/dl Magnesium Level 2.4 1.8-2.4 mg/dl Triglycerides Level 87 0-150 mg/dl Cholesterol Level 151 0-200 mg/dl HDL Cholesterol 77 mg/dl LDL Cholesterol, Calculated 57 mg/dl VLDL Cholesterol, Calculated 17 mg/dl Cholesterol/HDL Ratio 2.0 Microbiology Results 08/29/16 MRSA DNA Surveillance Screen - Final, Complete Specimen Negative for MRSA by DNA Probe
--- NOTE | 2016-08-29 21:43 | Progress Note ---
Internal Med Progress Note Date of Service: Aug 29, 2016. Provider Documentation: SUBJECTIVE: tremor has improved markedly , mentions of having chest pain on and off , but improved since yesterday no complain of SOB OBJECTIVE: Vital Signs-as noted below Exam: General-chronically ill appearing Eyes-sclera non icteric , PERRLA/EOMI Neck-no JVD Lungs-CTA, no wheeze or rales Heart-regular Abdomen-soft, non tender Extremities-s/p left hand surgery . bandage and cast intact , contracture of right hand , Neuro-chronic spasticity of both upper and lower ext , mild tremor , significant dysarthria, chronic left hemiparesis form prior stroke Lab data as noted below. ASSESSMENT & PLAN: CHEST PAIN : possible musculoskeletal - worsened with underlying anxiety no evidence of ACS ECHO ordered to assess LV function -report pending D Dimer negative ; low suspicion for PE Or DVT stable to D/C tele monitoring ELEVATED CPK /MILD RHABDOMYOLYSIS : due to underlying chronic spasticity presented with increased tremor , no report of fall cont IVF follow CPK level in AM labs PROLONG QTC ; resolved EKG this am Qtc 426 stable to D/C tele INCREASED TREMOR /HX OF PARKINSON'S DISEASE : pt is continued with Sinemet Neurology consulted -pt follows with Dr Hanna -appreciate input hx of chronic spasticity, contractures, dystonia, and associated tremor hx of pontine stroke in July 2010 . MRI of brain and cervical spine ordered to assess for any significant interval change in the previously identified pontomedullary hyperintensities and rule out demyelinating disorder. CHRONIC MUSCLE SPASTICITY possible causing increased CPK level Baclofen dose increased to 15 mg PO TID as per Neurology recommendation ANXIETY DISORDER : Ativan on Lexapro GERD : cont Omeprazole RECENT LEFT HAND SURGERY : s/p lengthening of left flexor digitorum superficialis of index finger and flexor digitorum profundus of index finger by Dr Eng on 08/14/16 pain control cont out pt follow up at [facility] FULL CODE : DVT PROPHYLAXIS : moderate to high risk Sub q heparin DISPOSITION : referral made to walker -pt prefers to go there social service for discharge planning possible transfer to [place] tomorrow Mother given update -present at bedside Medicine follow up with Ivania Mcdonald MD at [facility] Vital Signs: Date Time Temp Pulse Resp B/P Pulse Ox O2 Delivery O2 Flow Rate FiO2 08/29/16 19:43 37.0 74 18 130/90 96 Room Air 08/29/16 16:00 94 Room Air 08/29/16 15:10 36.7 82 18 153/89 94 Room Air 08/29/16 12:00 Room Air 08/29/16 11:28 36.4 77 18 161/102 95 Room Air 08/29/16 10:12 85 148/102 08/29/16 08:00 Room Air 08/29/16 07:28 36.7 83 18 179/102 97 Room Air 08/29/16 04:00 Room Air 08/29/16 00:00 Room Air 08/28/16 23:47 36.9 79 20 138/87 94 Room Air Lab Results: Results Past 24 Hours Test 08/29/16 01:10 08/29/16 07:37 08/29/16 08:49 Range/Units Total Creatine Kinase 461 704 26-192 U/L Creatine Kinase MB 16.9 23.2 0.5-3.6 ng/ml Creatine Kinase MB Ratio 3.7 3.3 0-3.0 Troponin I < 0.015 < 0.015 0-0.045 ng/ml Sodium Level 139 136-145 mmol/L Potassium Level 3.8 3.5-5.1 mmol/L Chloride Level 103 98-107 mmol/L Carbon Dioxide Level 28 21-32 mmol/L Anion Gap 8.0 3-11 mmol/L Blood Urea Nitrogen 14 7-18 mg/dl Creatinine 0.77 0.60-1.20 mg/dl Est Creatinine Clear Calc Drug Dose 86.5 ml/min Estimated GFR () 104.3 Estimated GFR (Non- 90.0 BUN/Creatinine Ratio 17.5 10-20 Random Glucose 112 70-99 mg/dl Calcium Level 9.3 8.5-10.1 mg/dl Magnesium Level 2.4 1.8-2.4 mg/dl Triglycerides Level 87 0-150 mg/dl Cholesterol Level 151 0-200 mg/dl HDL Cholesterol 77 mg/dl LDL Cholesterol, Calculated 57 mg/dl VLDL Cholesterol, Calculated 17 mg/dl Cholesterol/HDL Ratio 2.0 Microbiology Results 08/29/16 MRSA DNA Surveillance Screen - Final, Complete Specimen Negative for MRSA by DNA Probe
[2016-08-29] MEDS ORDERED: LORAZEPAM INJ 0.5 MG in SYRINGE 0.25 ML IV SCH (21:45)
[2016-08-30] VITALS (7 sets, daily range): BP systolic 130–162; BP diastolic 70–109; PULSE 64–100; TEMP 36.4–36.7; O2SAT 96–98
[2016-08-30] MEDS: CHECK FENTANYL PATCH PLACEMENT SCH ×2 (00:10→09:14)
[2016-08-30] MEDS: SODIUM CHLORIDE 0.9% 1000ML 1,000 ML IV SCH ×2 (03:14→12:53)
[2016-08-30] MEDS: HEPARIN SOD 5000 UNIT/0.5 ML CARP SQ SCH ×2 (05:51→13:24)
[2016-08-30] MEDS: HYDROmorphone INJ 0.5 MG/0.5 ML SYR IV PRN ×2 (07:13→13:42)
--- NOTE | 2016-08-30 08:59 | DIAGNOSTIC IMAGING REPORT ---
Brain MRI WITH AND WITHOUT CONTRAST HISTORY: pontomedullary stroke vs demyelination vs degenerative disease TECHNIQUE: Multiplanar multisequence MRI of the brain was performed both before and after the intravenous administration of contrast. COMPARISON STUDY: Brain MRI 11/03/2013. FINDINGS: There are no areas of restricted diffusion to suggest acute infarction. The midline structures are intact. Complete opacification of the left frontal sinus and left maxillary sinus. The ventricles and sulci are within normal limits for age. There is an old lacunar infarct seen within the right basal ganglia. There is no mass, hematoma, or midline shift. Minimal periventricular white matter T2 hyperintensity is nonspecific, but suggestive of microvascular ischemic change. There is also mild patchy areas of increased T2 signal within the arsen. Postcontrast sequences show no areas of abnormal enhancement. IMPRESSION: 1. No acute infarct. 2. Patchy pontine T2 hyperintensity is stable to slightly progressed. Stable minimal periventricular white matter T2 hyperintensity. 3. An old right basal ganglia lacunar infarct. 4. Complete opacification of the left frontal sinus and left maxillary sinus Electronically signed by: Willie Hoover M.D. 08/30/2016 8:58 AM Dictated Date/Time: 08/30/2016 8:50 AM
--- NOTE | 2016-08-30 09:05 | DIAGNOSTIC IMAGING REPORT ---
CERVICAL SPINE MRI WITH AND WITHOUT CONTRAST HISTORY: Pain. Neuropathy. spasticity, tremor, myelopathy TECHNIQUE: Multiplanar multisequence MRI of the cervical spine was performed both before and after the use of intravenous contrast. COMPARISON STUDY: 11/03/2013 FINDINGS: Degenerative disc changes throughout. Normal signal characteristics of the vertebral vertebral bodies. C2-C3: No significant central canal or neural foraminal narrowing. C3-C4: Minimal disc bulge. C4-C5: Minimal disc bulge C5-C6: Minimal disc bulge C6-C7: Minimal disc bulge. C7-T1: Minimal disc bulge. IMPRESSION: 1. Significant degenerative disc change. 2. Multilevel minimal degenerative disc bulges. 3. No significant impact upon the cervical cord or neural foramina. Electronically signed by: Art Diaz M.D. 08/30/2016 9:04 AM Dictated Date/Time: 08/30/2016 8:59 AM
[2016-08-30] MEDS: GABAPENTIN 600 MG TAB PO SCH ×2 (09:06→13:24)
[2016-08-30] MEDS: NEPHROCAPS PO SCH (09:06)
[2016-08-30] MEDS: ESCITALOPRAM OXALATE 10 MG TAB PO SCH (09:06)
[2016-08-30] MEDS: BACLOFEN 10 MG TAB PO SCH ×2 (09:06→13:23)
[2016-08-30] MEDS: ACETAMINOPHEN 325 MG TAB PO SCH ×2 (09:07→12:49)
[2016-08-30] MEDS: CARBIDOPA/LEVODOPA 25/100MG TAB PO SCH ×2 (09:07→13:24)
[2016-08-30] MEDS: CLONAZEPAM 0.5 MG TAB PO SCH ×2 (09:18→13:24)
[2016-08-30] MEDS ORDERED: PERFLUTREN LIPID MICROSPHERE (DEFINITY) IV ONE (10:33)
--- NOTE | 2016-08-30 10:41 | Neurology Progress Notes ---
Neurology Progress Note Date of Service Aug 30, 2016. Subjective Follow-up for tremors and spasticity, test results The patient continues to complain of bilateral upper extremity tremor, greater on the right. The tremor has been fairly persistent although waxes and wanes in severity. She believes that her medications including baclofen, Zanaflex, and clonazepam have been helpful. The dosage of baclofen was increased yesterday. No specific side effects reported. She completed the requested MRI of the brain and cervical spine. I reviewed the images and radiologist's interpretation of these tests. There does not appear to be any significant change compared with her previous imaging evaluations. There is evidence of patchy increased signal on T2 and FLAIR sequences within the arsen and perhaps extending into the cerebral peduncles bilaterally. These signal changes were observed previously and are perhaps a bit more prominent but probably not progressive. No new lesions are observed. The cervical spinal cord appears normal. Objective Date Time Temp Pulse Resp B/P Pulse Ox O2 Delivery O2 Flow Rate FiO2 08/30/16 07:19 73 162/102 97 Room Air 08/30/16 07:06 36.6 64 20 161/109 96 Room Air 64 08/30/16 04:18 36.4 100 20 130/70 97 Nasal Cannula 3.0 08/30/16 00:00 Room Air 08/29/16 23:35 36.6 63 20 133/85 95 Room Air 08/29/16 20:00 96 Room Air 08/29/16 19:43 37.0 74 18 130/90 96 Room Air 08/29/16 16:00 94 Room Air 08/29/16 15:10 36.7 82 18 153/89 94 Room Air 08/29/16 12:00 Room Air 08/29/16 11:28 36.4 77 18 161/102 95 Room Air Last 24 Hours Test 08/30/16 06:33 Total Creatine Kinase 263 U/L Exam: The patient is lying comfortably in bed. Her mother is at bedside. She is alert and oriented to person place and time. Attention and concentration normal. Recent and remote memory intact. She exhibits a normal spontaneous speech pattern. No dysarthria. Normal vocabulary. Visual clement full to confrontation. Pupils equal round reactive to light and accommodation. Eye movements normal. There is no nystagmus. There is normal facial symmetry and strength. Palate elevates to midline. Tongue protrudes to midline. Hearing intact. The patient continues to exhibit a bilateral upper extremity rest and action tremor, greater on the right. The tremor is coarse and irregular. It does not have a pill-rolling quality. The tremor is distractible and appears to attenuate with volitional movement of the right upper limb. He does not have an emergent quality. Generalized spasticity unchanged from yesterday primarily affecting the left upper limb and both lower extremities. Current Inpatient Medications Medications (Trade) Dose Ordered Sig/Katheryn Route Start Time Stop Time Status Last Admin Dose Admin Heparin Sodium (Porcine) (Heparin Sq 5000 Unit/0.5ml) 5,000 unit Q8 SQ 08/28/16 22:00 09/27/16 21:59 08/30/16 05:51 5,000 UNIT Al Hydrox/Mg Hydrox/Simethicone (Maalox Max Susp) 15 ml Q4H PRN PO 08/28/16 18:15 09/27/16 18:14 Nitroglycerin (Nitrostat Tab) 0.4 mg UD PRN SL 08/28/16 18:15 09/27/16 18:14 Polyethylene (Miralax Powder Packet) 17 gm DAILY PRN PO 08/28/16 18:15 09/27/16 18:14 Hydromorphone HCl (Dilaudid Inj) 0.5 mg Q6 PRN IV 08/28/16 18:15 09/11/16 18:14 08/30/16 07:13 0.5 MG Acetaminophen (Tylenol Tab) 650 mg QID PO 08/28/16 21:00 09/27/16 20:59 08/30/16 09:07 650 MG Vitamin B Complex/ Vit C/Folic Acid (Nephrocaps) 1 cap QAM PO 08/29/16 09:00 09/28/16 08:59 08/30/16 09:06 1 CAP Bisacodyl (Dulcolax Supp) 10 mg DAILY PRN UT 08/28/16 18:30 09/27/16 18:29 Carbidopa/Levodopa (Sinemet 25/ 100MG Tab) 1 tab TID PO 08/28/16 21:00 09/27/16 20:59 08/30/16 09:07 1 TAB Clonazepam (Klonopin Tab) 0.5 mg TID PO 08/28/16 21:00 09/27/16 20:59 08/30/16 09:18 0.5 MG Escitalopram Oxalate (Lexapro Tab) 10 mg QAM PO 08/29/16 09:00 09/28/16 08:59 08/30/16 09:06 10 MG Fentanyl (Duragesic Patch) 25 mcg Q3D@0900 TD 08/31/16 09:00 09/14/16 08:59 Gabapentin (Neurontin Tab) 600 mg TID PO 08/28/16 21:00 09/27/16 20:59 08/30/16 09:06 600 MG Magnesium Hydroxide (Milk Of Magnesia Susp) 30 ml Q6 PRN PO 08/28/16 18:30 09/27/16 18:29 08/28/16 19:21 30 ML Tizanidine HCl (Zanaflex Tab) 2 mg TID@0000,0800,1600 PO 08/29/16 00:00 09/28/16 00:00 08/30/16 09:06 2 MG Miscellaneous Information (Order Awaiting Action) 1 ea QS N/A 08/29/16 00:00 09/28/16 00:00 Miscellaneous (Iv Fluids Completed) 1 ea PRN PRN N/A 08/28/16 19:30 08/28/17 19:29 08/30/16 05:01 1 EA Fentanyl (Duragesic Patch) 12 mcg Q3D@0900 TD 08/31/16 09:00 09/14/16 08:59 Miscellaneous (Fentanyl Patch Remove & Waste) 1 ea Q3D@0859 N/A 08/31/16 08:59 09/30/16 08:58 Miscellaneous Information 1 ea 1 ea QS N/A 08/29/16 00:00 09/28/16 00:00 08/30/16 09:14 1 EA Sodium Chloride 1,000 ml @ 100 mls/hr Q10H IV 08/29/16 07:45 09/28/16 07:44 08/30/16 03:14 100 MLS/HR Lorazepam/Syringe (Ativan Inj/ Syringe) 0.5 ml @ 0.5 mls/min UD IV 08/29/16 21:45 08/30/16 12:00 08/30/16 06:57 0.5 MLS/MIN Baclofen (Lioresal Tab) 15 mg TID PO 08/30/16 09:00 09/29/16 08:59 08/30/16 09:06 15 MG Impression Chronic, 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 There may be some associated Wallerian degeneration within the cerebral peduncles. The underlying cause of her condition remains somewhat speculative although a remote basilar thrombosis has been the favored diagnosis. A remote demyelinating event is also not excluded. Furthermore, there does not appear to be evidence of significant interval change on the most recent brain and cervical spine MRIs. There are no findings that would strongly suggest a progressive demyelinating disorder. The previously identified signal changes are a bit more prominent which may be a feature of their chronicity. Plan Continue with current medication regimen including baclofen, tizanidine, gabapentin, and Sinemet. The patient has expressed some interest in another baclofen pump trial. This evaluation can be set up at the [facility] pain clinic as an outpatient. She has seen Dr. Adams previously. PT/OT This patient may follow-up with me in clinic at her next scheduled appointment.
--- NOTE | 2016-08-30 13:19 | Discharge Instructions ---
Discharge Instructions Date of Service Aug 30, 2016. Admission Reason for Admission: Chest Pain Discharge Discharge Diagnosis / Problem: CHEST PAIN /HX OF PONTINE CVA /CHRONIC SPASCITIY /TREMOR Discharge Goals Goal(s): Increase independence, Improve disease control, Diagnostic testing, Therapeutic intervention Activity Recommendations Activity Level: Assistance Required Therapies: Physical Therapy, Occupational Therapy . Additional Information Patient informed of condition: Yes Advance Directives: Yes DNR: No Level of Care: Skilled Communicable Disease: No Prognosis: Stable [place] Catheter: No Instructions / Follow-Up Instructions / Follow-Up FOLLOW UP WITH FAMILY PHYSICIAN IN 1WEEKS FOLLOW UP WITH NEUROLOGY DR BEE PER SCHEDULE FOLLOW UP WITH ORTHOPEDICS DR BELL IN 1 -2 WEEKS, PLEASE CALL OFFICE TO SCHEDULE Current Hospital Diet Patient's current hospital diet: Regular Diet Discharge Diet Recommended Diet: Regular Diet Pending Studies Studies pending at discharge: no Laboratory Results Lipid Panel Test 08/29/16 08:49 Range/Units Triglycerides Level 87 0-150 mg/dl Cholesterol Level 151 0-200 mg/dl HDL Cholesterol 77 mg/dl Cholesterol/HDL Ratio 2.0 LDL Cholesterol, Calculated 57 mg/dl Medical Emergencies . Who to Call and When: Medical Emergencies: If at any time you feel your situation is an emergency, please call 911 immediately. . Non-Emergent Contact Non-Emergency issues call your: Primary Care Provider . . "Provider Documentation" section prepared by Sofia Rosenbaum. Core Measure Problem Core Measures: None
[2016-08-30] MEDS ORDERED: LRS10 PO (13:24)
[2016-08-30] MEDS ORDERED: CLON0.5T3 PO (13:24)
[2016-08-30] MEDS ORDERED: DRGTP12 TD (13:24)
[2016-08-30] MEDS ORDERED: DRGTP25 TOP (13:24)
[2016-08-30] MEDS ORDERED: AMOX500T PO (13:36)
[2016-08-30] MEDS ORDERED: AMOXICILLIN/CLAVULANATE TAB 875 MG TAB PO ONE (14:00)
--- NOTE | 2016-08-30 15:02 | ECHOCARDIOGRAM REPORT ---
*NOTICE TO RECEIVING [employer]ENCY This information is strictly Confidential and protected under [place] law. [place] law prohibits you from making any further disclosure of this information unless further disclosure is expressly permitted by the written consent of the person to whom it pertains or is authorized by law. A general authorization for the release of medical or other information is not sufficient for this purpose. Hospital accepts no responsibility if the information is made available to any other person, INCLUDING THE PATIENT. Interpretation Summary * Name: ANDRES KRISHNAN Study Date: 08/30/2016 09:40 AM BP: 138/91 mmHg * Patient Location: [facility]\S\N280\S\2 HR: 66 * : 1965 (M/d/yyyy) Gender: Female Height: 64 in * Age: 51 yrs Ethnicity: CA Weight: 165 lb * Ordering Physician: Sofia Rosenbaum * Referring Physician: Stuart Eng * Performed By: Constance Mitchell RCS * * Reason For Study: FLAKITA W/ MR * BSA: 1.8 m2 * -- Conclusions -- * The mitral valve is normal in structure and function. * There is no mitral regurgitation noted. * There is normal left ventricular wall thickness. * Ejection Fraction = 60-65%. * The right ventricular systolic function is normal. * The left atrial size is normal. * Right atrial size is normal. Procedure Details * A complete two-dimensional transthoracic echocardiogram was performed (2D, M-mode, Doppler and color flow Doppler). * A contrast injection of Definity was performed to improve assessment of LV function. * Contrast was injected into an intravenous site in the right arm. * One vial of Definity ultrasound contrast was diluted in normal saline to a total volume of 10 ml. A total of '2' ml of solution was administered during imaging. * Lot # [id number] of Definity utilized for procedure. * Expiration date 1APR18. * The attending nurse who injected the contrast agent was Andie Petersen RN. Left Ventricle * The left ventricle is normal in size. * There is normal left ventricular wall thickness. * Left ventricular systolic function is normal. * Ejection Fraction = 60-65%. * The left ventricular wall motion is normal. Right Ventricle * The right ventricle is normal size. * The right ventricular systolic function is normal. Atria * The left atrial size is normal. * Right atrial size is normal. * The interatrial septum is intact with no evidence for an atrial septal defect. Mitral Valve * The mitral valve is normal in structure and function. * There is no mitral regurgitation noted. Aortic Valve * The aortic valve is normal in structure and function. Pulmonic Valve * The pulmonic valve is not well visualized. * There is no significant pulmonary regurgitation. Great Vessels * The aortic root and proximal ascending aorta are normal sized. Pericardium/Pleural * There is no pericardial effusion. MMode 2D Measurements and Calculations IVSd 0.92 cm IVSs 1.2 cm LVIDd 4.7 cm LVIDs 2.9 cm LVPWd 0.97 cm LVPWs 1.2 cm IVS/LVPW 0.95 FS 38.6 % EDV(Teich) 104.8 ml ESV(Teich) 32.7 ml EF(Teich) 68.8 % EDV(cubed) 107.0 ml ESV(cubed) 24.8 ml EF(cubed) 76.8 % % IVS thick 28.1 % % LVPW thick 21.9 % LV mass(C)d 154.6 grams LV mass(C)dI 85.8 grams/m\S\2 LV mass(C)s 102.0 grams LV mass(C)sI 56.6 grams/m\S\2 CO(Teich) 4.5 l/min CI(Teich) 2.5 l/min/m\S\2 SV(Teich) 72.1 ml SI(Teich) 40.0 ml/m\S\2 CO(cubed) 5.2 l/min CI(cubed) 2.9 l/min/m\S\2 SV(cubed) 82.2 ml SI(cubed) 45.6 ml/m\S\2 Ao root diam 2.9 cm Ao root area 6.4 cm\S\2 ACS 1.6 cm LA dimension 3.1 cm LA/Ao 1.1 LVAd ap4 30.7 cm\S\2 LVLd ap4 8.1 cm EDV(MOD-sp4) 95.0 ml LVAs ap4 16.6 cm\S\2 LVLs ap4 7.0 cm ESV(MOD-sp4) 34.0 ml EF(MOD-sp4) 64.2 % LVAd ap2 29.3 cm\S\2 LVLd ap2 8.5 cm EDV(MOD-sp2) 83.0 ml LVAs ap2 16.6 cm\S\2 LVLs ap2 7.1 cm ESV(MOD-sp2) 32.0 ml EF(MOD-sp2) 61.4 % CO(MOD-sp4) 3.8 l/min CI(MOD-sp4) 2.1 l/min/m\S\2 SV(MOD-sp4) 61.0 ml SI(MOD-sp4) 33.8 ml/m\S\2 CO(MOD-sp2) 3.2 l/min CI(MOD-sp2) 1.8 l/min/m\S\2 SV(MOD-sp2) 51.0 ml SI(MOD-sp2) 28.3 ml/m\S\2 Doppler Measurements and Calculations MV E max ginger 76.6 cm/sec MV A max ginger 66.7 cm/sec MV E/A 1.1 MV P1/2t max ginger 93.8 cm/sec MV P1/2t 106.7 msec MVA(P1/2t) 2.1 cm\S\2 MV dec slope 257.6 cm/sec\S\2 MV dec time 0.21 sec Ao V2 max 131.1 cm/sec Ao max PG 6.9 mmHg Ao max PG (full) 2.2 mmHg LV V1 max PG 4.6 mmHg LV V1 max 107.8 cm/sec PA V2 max 114.7 cm/sec PA max PG 5.3 mmHg TR max ginger 250.5 cm/sec
--- NOTE | 2016-08-30 21:52 | Discharge Summary ---
Discharge Summary Date of Service Aug 30, 2016. Discharge Summary Admission Date: Aug 28, 2016 at 18:08 Discharge Date: Aug 30, 2016 Principal Diagnosis: CHEST PAIN /HX OF PONTINE CVA /CHRONIC SPARSITY /TREMOR Consultations: NEUROLOGY DR GREENBERG Medication Reconciliation New Medications: Amoxicillin & Pot Clavulanate (Augmentin 500MG) 1 Tab Tab 500 MG PO Q8H for 7 Days, TAB Baclofen (Baclofen) 10 Mg Tab 15 MG PO TID for 30 Days, #135 TAB Fentanyl (Fentanyl) 12 Mcg Tdsy 12 MCG TD Q3D@0900, #10 PATCH Continued Medications: Acetaminophen Tab (Tylenol) 325 Mg Tab 650 MG PO QID for Pain or Fever, TAB B-Complex W/ C & Folic Acid (Triphrocaps) 1 Cap Cap 10 MG PO QAM Bisacodyl (Dulcolax) 10 Mg Sup 1 SUPP CO PRN UD, SUP Carbidopa/Levodopa (Sinemet 25MG/100MG) Tab 1 TAB PO TID, TAB 0800/1400/2000 Chlorhexidine Gluconate (Mouth (Peridex) 0.12 % Marine 10 ML TOP QAM for 30 Days, #300 ML Clonazepam (Klonopin) 0.5 Mg Tab 0.5 MG PO TID, #90 TAB (This prescription has been renewed) Ritchie Tar Extract (Dhs Tar) 0.5 % Sha 1 DOSE TOP WEEKLY DOES ON THURSDAYS. Escitalopram Oxalate (Escitalopram Oxalate) 10 Mg Tab 1 TAB PO QAM Fentanyl (Fentanyl) 25 Mcg Tdsy 37 MCG TOP Q72HRS, #10 PATCH (This prescription has been renewed) 25 MCG + 12 MCG PATCHES TOGETHER Gabapentin (Gabapentin) 600 Mg Tab 600 MG PO TID Magnesium Hydroxide (Milk Of Magnesia) 30 Ml Susp 30 ML PO PRN UD, ML Omeprazole (Prilosec) 20 Mg Capcr 20 MG PO BID, CAP Ondansetron Hcl (Zofran) 4 Mg Tab 4 MG PO Q6H PRN for N, TAB Sodium Phosphates (Enema) 1 Bridget Bridget 1 RE PRN UD Tizanidine (Zanaflex) 2 Mg Cap 2 MG PO 3XDAY, CAP MIDNIGHT/0800/1600 [Baby Shampoo] () 1 DOSE TOP DAILY PRN for RN TO UMBILICUS PRN [Roll On Pain Gel] () 1 % 1 DOSE TOP BID 1 % Discontinued Medications: Baclofen (Lioresal) 10 Mg Tab 10 MG PO TID, TAB Admission Information HPI (per Admitting provider): This is a 51 yo F with complex past medical 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 Pt had surgery on her left hand by Dr duran on 08/14/16 for spastic contracture - schedule to see for Post op Follow up at [facility] office today at the office pt developed substernal chest pain /heaviness , diaphoretic , tremulous, SOB given SL nitro with no relief on the way to [facility] -pt received IV morphine , Full strength aspirin , nitro spray during my time of evaluation -pt was diaphoretic , very anxious , continued to have significant tremor complaining of chest pain /SOB -ordered for Nitro Paste pulse Ox remained in 96 % in RA sinus tach Lab work ,chest xray is unremarkable EKG poor baseline for continued tremor D Dimer wnl pt will be admitted to [facility] on observation status for further work up for Chest pain /SOB Physical Exam (per Admitting): General Appearance: + moderate distress (anxious /diaphoretic , ) Head: normocephalic, atraumatic Eyes: normal inspection Neck: supple, no carotid bruits, trachea midline Respiratory/Chest: chest non-tender, lungs clear, normal breath sounds, no respiratory distress Cardiovascular: no edema, no JVD, + tachycardia Abdomen/GI: normal bowel sounds, non tender, soft Extremities/Musculoskelatal: + pertinent finding (left hand in bandage for recent surgery /contructure on rt hand /bilateral brace on lower ext ) Neurologic/Psych: + pertinent finding (increased tremor , muscle spascitiy , left hemiplegia ) Skin: + pertinent finding (diaphoretic ) Hospital Course chest pain has resolved, minimum tremor , much improved that prior no SOB stable to be transferred to [place] mother updated at bedside EXAM : General-NO SIGN OF DISTRESS Eyes-sclera non icteric , PERRLA/EOMI Neck-no JVD Lungs-CTA, no wheeze or rales Heart-regular Abdomen-soft, non tender Extremities-s/p left hand surgery . bandage and cast intact , contracture of right hand , Neuro-chronic spasticity of both upper and lower ext , mild tremor , significant dysarthria, chronic left hemiparesis form prior stroke CHEST PAIN/ATYPICAL FOR ACS : symptom has resolved possible musculoskeletal - worsened with underlying anxiety no evidence of ACS serial cardiac markers negative, ECHO ordered to assess LV function - normal LV function,no wall motion abnormality D Dimer negative ; low suspicion for PE Or DVT INCREASED TREMOR /HX OF PARKINSON'S DISEASE : pt is continued with Sinemet hx of chronic spasticity, contractures, dystonia, and associated tremor hx of pontine stroke in July 2010 . MRI of brain and cervical spine: 1. No acute infarct. 2. Patchy pontine T2 hyperintensity is stable to slightly progressed. Stable minimal periventricular white matter T2 hyperintensity. 3. An old right basal ganglia lacunar infarct. 4. Complete opacification of the left frontal sinus and left maxillary sinus Neurology consulted -pt follows with Dr Hanna -appreciate input per Neurology : no significant change compared with previous imaging evaluations. patchy increased signal on T2 and FLAIR sequences within the arsen and perhaps extending into the cerebral peduncles bilaterally- These signal changes were observed previously and are perhaps a bit more prominent but probably not progressive. No new lesions are observed. The cervical spinal cord normal. CHRONIC MUSCLE SPASTICITY possible causing increased CPK level Baclofen dose increased to 15 mg PO TID as per Neurology recommendation ELEVATED CPK /MILD RHABDOMYOLYSIS : due to underlying chronic spasticity presented with increased tremor , no report of fall CPK level improved with IV fluids PROLONG QTC ; resolved repeat EKG Qtc 426 ACUTE/CHRONIC SINUSITIS : noted in MRI of brain started on Augmentin ANXIETY DISORDER : Ativan on Lexapro GERD : cont Omeprazole RECENT LEFT HAND SURGERY : s/p lengthening of left flexor digitorum superficialis of index finger and flexor digitorum profundus of index finger by Dr Duran on 08/14/16 pain control cont out pt follow up at [facility] FULL CODE : DVT PROPHYLAXIS : moderate to high risk Sub q heparin DISPOSITION : referral made to [facility] -pt prefers to go there social service for discharge planning transfer to [facility] Medicine follow up with Ivania Mcdonald MD at [facility] Discharge Instructions Discharge Instructions Date of Service Aug 30, 2016. Admission Reason for Admission: Chest Pain Discharge Discharge Diagnosis / Problem: CHEST PAIN /HX OF PONTINE CVA /CHRONIC SPARSITY /TREMOR Discharge Goals Goal(s): Increase independence, Improve disease control, Diagnostic testing, Therapeutic intervention Activity Recommendations Activity Level: Assistance Required Therapies: Physical Therapy, Occupational Therapy . Additional Information Patient informed of condition: Yes Advance Directives: Yes DNR: No Level of Care: Skilled Communicable Disease: No Prognosis: Stable [place] Catheter: No Instructions / Follow-Up Instructions / Follow-Up FOLLOW UP WITH FAMILY PHYSICIAN IN 1WEEKS FOLLOW UP WITH NEUROLOGY DR GREENBERG PER SCHEDULE FOLLOW UP WITH ORTHOPEDICS DR DURAN IN 1 -2 WEEKS, PLEASE CALL OFFICE TO SCHEDULE Current Hospital Diet Patient's current hospital diet: Regular Diet Discharge Diet Recommended Diet: Regular Diet Pending Studies Studies pending at discharge: no Laboratory Results Lipid Panel Test 08/29/16 08:49 Range/Units Triglycerides Level 87 0-150 mg/dl Cholesterol Level 151 0-200 mg/dl HDL Cholesterol 77 mg/dl Cholesterol/HDL Ratio 2.0 LDL Cholesterol, Calculated 57 mg/dl Medical Emergencies . Who to Call and When: Medical Emergencies: If at any time you feel your situation is an emergency, please call 911 immediately. . Non-Emergent Contact Non-Emergency issues call your: Primary Care Provider . . "Provider Documentation" section prepared by Sofia Rosenbaum. Core Measure Problem Core Measures: None Additional Copies To Jorge Greenberg M.D. Lincoski, Christopher J., MD
[2016-08-31] MEDS ORDERED: FENTANYL PATCH REMOVE & WASTE SCH (08:59)
[2016-08-31] MEDS ORDERED: FENTANYL 12 MCG/HR TDSY TD SCH (09:00)
[2016-08-31] MEDS ORDERED: FENTANYL 25 MCG/HR TDSY TD SCH (09:00)
[2017-01-01] MEDS ORDERED: FENT25DI10 TOP (14:41)
[2017-01-01] MEDS ORDERED: PRLSR20 PO (14:41)
[2017-01-01] MEDS ORDERED: B-COCAP21 PO (14:41)
[2017-01-01] MEDS ORDERED: DURAGESIC TOP (14:41)
[2017-01-01] MEDS ORDERED: BACL10TA PO (14:43)
[2017-01-01] MEDS ORDERED: ROPI0.5T15 PO (14:43)
[2017-01-01] MEDS ORDERED: CLON0.5T3 PO (14:44)
[2017-01-01] MEDS ORDERED: AMLO-110 PO (14:47)
[2017-01-01] MEDS ORDERED: SODI1ENE RE (14:47)
[2017-01-01] MEDS ORDERED: PROM12.57 PO (14:47)
[2017-01-01] MEDS ORDERED: NITR-5 PO (15:55)
== END 2016-08-30 16:00 | disposition home or self-care (01) ==
LOC: ENRESERVTM → ENRESERVDT → EDBD 14:59 → C.EDC 15:05 → C.MED 18:08 → EDBEDREQ 18:27
PROVIDERS: ADMIT Hospitalist; ATTEND Hospitalist
DX: R07.89 Other chest pain (principal); Z86.73 Personal history of transient ischemic attack (TIA), and cerebral infarction without residual deficits; R25.1 Tremor, unspecified; G20 Parkinson's disease; M62.838 Other muscle spasm; M62.82 Rhabdomyolysis; I45.81 Long QT syndrome; J01.90 Acute sinusitis, unspecified; J32.9 Chronic sinusitis, unspecified; K21.9 Gastro-esophageal reflux disease without esophagitis; F32.9 Major depressive disorder, single episode, unspecified; G24.1 Genetic torsion dystonia

== ENCOUNTER → 2017-01-03 | Day surgery (SDC) | payer OTHER ==
--- NOTE | 2017-01-01 07:03 | HISTORY & PHYSICAL EXAMINATION ---
DATE OF ADMISSION: 01/03/2017 Mariya was seen in the office on 12/13/2016 in followup. She notes increasing pain in the thumb at the thumb MP and IP joints and progressive contracture of the left thumb. History and physical documentation could not be performed at that time due to dictation system not functioning. HISTORY OF PRESENT ILLNESS: I did fractional lengthening in the past for her which resulted in improvement in hygiene in her fingers. She has minimal change of function in the left hand. PHYSICAL EXAMINATION: HEART: Regular rate and rhythm. LUNGS: Clear to auscultation bilaterally. MUSCULOSKELETAL: Left thumb exam shows spastic flexion deformity of the thumb. She has adduction contracture. She can volitionally flex the IP joint of the thumb, the thumb is stuck in about 90 degrees of MP and IP flexion. Fingers show improvement in clenched fist posture after fractional lengthening on the left. Well-healed surgical incisions over the left forearm. Significant adduction contracture of the left thumb seen. Left hand exam shows about 7-degree MP contractures and 28-degree PIP contractures in digits 2 through 5. ASSESSMENT: 1. Status post stroke. 2. Left thumb flexor pollicis longus contracture. 3. Left thumb adductor pollicis contracture. PAST MEDICAL HISTORY: Includes stroke. ALLERGIES: VICODIN, OXYCODONE, PERCOCET, TRAMADOL. PAST SURGICAL HISTORY: Gallbladder surgery, recent fractional lengthening at [facility] in left forearm. PAST MEDICAL HISTORY: Arthritis, anemia, melanoma, history of cerebrovascular accident, depression, high blood pressure, GERD, shortness of breath, history of DVT in the left foot and foot drop bilaterally. MEDICATIONS: Carbidopa/levodopa, losartan, baclofen, gabapentin, fentanyl patch, milk of magnesia, tizanidine, Zofran, escitalopram, MiraLax, clonazepam, Dulcolax, chlorhexidine as needed, omeprazole, Tums, aspirin. PLAN: I discussed treatment options. At this point in time, she is developing increasing pain in the thumb, is unable to take most medications other than Tylenol. We will plan for left thumb fractional lengthening of FPL and adductor tenotomy. I discussed with her I cannot guarantee this would get all of her pain better and I feel this will likely get the thumb in a better position of hygiene, but will not likely result in any improvement in function. She is understanding of these issues. We will plan for surgical intervention shortly. We will also plan for manipulation under anesthesia of digits 2 through 5 as they are significantly stiff.
[2017-01-01 15:57] VITALS: BMI 27.0
--- NOTE | 2017-01-01 16:15 | PAT Medication Instructions ---
Service Date Jan 01, 2017. Current Home Medication List Acetaminophen Tab (Tylenol), 650 MG PO QID Amlodipine (Norvasc), 5 MG PO QAM B-Complex W/ C & Folic Acid (Andrew Caps), 1 TAB PO QAM Baclofen (Lioresal), 15 MG PO TID Bisacodyl (Dulcolax), 1 SUPP MO PRN UD Carbidopa/Levodopa (Sinemet 25MG/100MG), 2 TAB PO TID Chlorhexidine Gluconate (Mouth (Peridex), 10 ML TOP QAM Clonazepam (Klonopin), 0.5 MG PO TID Escitalopram Oxalate (Escitalopram Oxalate), 1 TAB PO QAM Fentanyl (Duragesic), 1 DOSE TOP Q72HRS Gabapentin (Gabapentin), 600 MG PO TID Magnesium Hydroxide (Milk Of Magnesia), 30 ML PO PRN UD Nitrofurantoin Monohyd Macrocr (Macrobid), 100 MG PO BID Omeprazole (Prilosec), 40 MG PO QAM Promethazine (Phenergan ), 12.5 MG PO Q6H PRN for Nausea or Vomiting Ropinirole (Requip), 0.5 MG PO HS Sodium Phosphates (Fleet Enema Six Pack), 1 DOSE RE UD PRN for RN Tizanidine (Zanaflex), 2 MG PO 3XDAY [Duragesic], 12 MCG TOP Q72HRS Medication Instructions For Your Scheduled Surgery - Hold the following medications the morning of surgery: Sodium Phosphates (Fleet Enema Six Pack), 1 DOSE RE UD PRN for RN Magnesium Hydroxide (Milk Of Magnesia), 30 ML PO PRN UD Chlorhexidine Gluconate (Mouth (Peridex), 10 ML TOP QAM Baclofen (Lioresal), 15 MG PO TID Bisacodyl (Dulcolax), 1 SUPP MO PRN UD B-Complex W/ C & Folic Acid (Andrew Caps), 1 TAB PO QAM Tizanidine (Zanaflex), 2 MG PO 3XDAY - Take the following medications the morning of surgery with a sip of water: Nitrofurantoin Monohyd Macrocr (Macrobid), 100 MG PO BID Omeprazole (Prilosec), 40 MG PO QAM Promethazine (Phenergan ), 12.5 MG PO Q6H PRN for Nausea or Vomiting (if needed) Gabapentin (Gabapentin), 600 MG PO TID Fentanyl (Duragesic), 1 DOSE TOP Q72HRS (AVOID SURGICAL SITE FOR PLACEMENT) Escitalopram Oxalate (Escitalopram Oxalate), 1 TAB PO QAM Clonazepam (Klonopin), 0.5 MG PO TID Carbidopa/Levodopa (Sinemet 25MG/100MG), 2 TAB PO TID Acetaminophen Tab (Tylenol), 650 MG PO QID Amlodipine (Norvasc), 5 MG PO QAM - Hold the following medications as scheduled the night before surgery: Ropinirole (Requip), 0.5 MG PO HS - Take the following medications as scheduled the night before surgery: Sodium Phosphates (Fleet Enema Six Pack), 1 DOSE RE UD PRN for RN (if needed) Promethazine (Phenergan ), 12.5 MG PO Q6H PRN for Nausea or Vomiting (if needed ) Nitrofurantoin Monohyd Macrocr (Macrobid), 100 MG PO BID Gabapentin (Gabapentin), 600 MG PO TID Clonazepam (Klonopin), 0.5 MG PO TID Carbidopa/Levodopa (Sinemet 25MG/100MG), 2 TAB PO TID Baclofen (Lioresal), 15 MG PO TID Bisacodyl (Dulcolax), 1 SUPP MO PRN UD (if needed) Acetaminophen Tab (Tylenol), 650 MG PO QID Tizanidine (Zanaflex), 2 MG PO 3XDAY If you have any questions please call us at [phone] or [phone] or [phone]
[~2017-01-03] VITALS: Ht 165.1 cm; Wt 68.6 kg
[~2017-01-03] MED LIST changes: +ACETAMINOPHEN 500 MG TAB PO ONE; +AMLO-110 PO; +AMLODIPINE BESYLATE 5 MG TAB PO ONE; +ATROPINE SULFATE 0.1 MG/ML 5ML SYR IV PRN; +B-COCAP21 PO; -B-COCAP28 PO; -BABY SHAMPOO TOP; +BACL10TA PO; -BACL20TA PO; +BACLOFEN 10 MG TAB PO ONE; +BUPIVACAINE 0.5 % 5 MG/1 ML MPF 30ML VIAL ONE; +BUPIVACAINE/EPINEPHRINE 0.5% MPF 1:200,000 10 ML VIAL ONE; -CALC500C3 PO; +CARBIDOPA/LEVODOPA 10/100MG TAB PO ONE; +CEFAZOLIN SOD 1000MG/55 ML D5W IV ONE; -COALSHA TOP; +DEXAMETHASONE SOD INJ 4 MG/ML VIAL ONE; -DRGTP25 TOP; +DURAGESIC TOP; +EpHEDrine SULFATE 50MG/5ML SYR ONE; +FENT25DI10 TOP; +FENTANYL CITRATE INJ 50 MCG/1 ML 2 ML VIAL IV PRN; +FENTANYL CITRATE INJ 50 MCG/1 ML 2 ML VIAL ONE; -GABA-113 PO; +KETOROLAC TROMETHAMINE 30 MG/ML VIAL ONE; +LABETALOL HCL IV 5 MG/ML 20ML IV ONE; +LABETALOL HCL IV 5 MG/ML 20ML IV PRN; +LACTATED RINGER'S 1000ML 1,000 ML IV SCH; +LIDOCAINE HCL 2% 2 ML VIAL (20MG/ML) ONE; +MIDAZOLAM HCL 1 MG/ML 2ML VIAL ONE; +NITR-5 PO; +NRN600 PO; +NURSING VERBAL MED ORDER ONE; -ONDA4TAB46 PO; +ONDANSETRON INJ 2 MG/ML 2 ML VIAL IV PRN; +ONDANSETRON INJ 2 MG/ML 2 ML VIAL ONE; -POLY335019 PO; +PROM12.57 PO; +PROPOFOL IV EMULSION 10 MG/ML 20 ML VIAL IV ONE; +ROPI0.5T15 PO; +SODI1ENE RE; -SODI1ENE4 RE; -[UNRECOGNIZED DRUG - OTHER] TOP
[2017-01-03 05:39] VITALS: BP 150/74; PULSE 82; TEMP 36.7; O2SAT 92; Ht 165.1 cm; Wt 68.6 kg
--- NOTE | 2017-01-03 08:23 | [facility] Post Operative Brief Note ---
Immediate Operative Summary Operative Date Jan 03, 2017. Pre-Operative Diagnosis Status post stroke, Left thumb flexor pollicis longus contracture, Left thumb adductor pollicis contracture. Post-Operative Diagnosis Same as preoperative Procedure(s) Performed Left Thumb Fractional Lengthening Flexor Pollicis Longus, Adductor Tenotomy; Left Hand Digits 2-5 Manipulation Under Anesthesia Surgeon Dr. Stuart Eng Special Distribution Clerk Surgeon(s) Yenifer Garcia PA-C Estimated Blood Loss 5ml Findings contracture Specimens None per surgeon Drains none Anesthesia gen Complication(s) None Disposition Recovery Room / PACU
--- NOTE | 2017-01-03 08:29 | Discharge Instructions ---
Discharge Instructions Date of Service Jan 03, 2017. Admission Reason for Admission: Left Hand Contracture, Stiffness Discharge Discharge Diagnosis / Problem: staus post thumb contracture release Discharge Goals Goal(s): Decrease discomfort Activity Recommendations Activity Limitations: per Instructions/Follow-up section (no use of affected hand) . Instructions / Follow-Up Instructions / Follow-Up UOC : Hand /Wrist Instr. ACTIVITY RECOMMENDATIONS: Avoid lifting anything until your first post-operative visit. Keep your hand elevated above the level of your heart at all times. Elbow should be above the level of the heart, and hand kept above the elbow. ~ You may use a sling if necessary. Ice the affected extremity a minimum of 3-4 times a day, 20 minutes each time. SPECIAL CARE INSTRUCTIONS: * Your bandage should be left in place until seen in the office. * Some drainage onto the dressing may occur.~ This is normal. * If the bandage feels excessively tight, you may loosen the elastic bandage.~ Then call the physician's office for further instructions. * You should move your fingers regularly, making a fist and extending them, unless otherwise instructed. SPECIAL PRECAUTIONS: * If you notice increased drainage, fever over 101 degrees F. or severe, unremitting pain, call your physician/office at . * You may have been prescribed pain medication.~ If you experience nausea and/ or skin rash, discontinue this medication and contact our office for an alternative medication. Pain Medication: a. You will be prescribed pain medication upon discharge that should last till your first post-operative appointment. b. You may also take Advil, Ibuprofen or Aleve between medication doses if you do not have any contraindication to taking them. c. You may also take Advil, Ibuprofen, Aleve or Tylenol in place of your pain medication if the pain is tolerable. FOLLOW UP VISIT: If appointment is not already scheduled: Please call [facility] to make a follow-up appointment after your surgery at . Follow up appointment with Dr. Eng or his PA: 10-14 days keep cast clean and dry continue fentanyl patch and prior pain medications. no additional pain meds prescribed. Current Hospital Diet Patient's current hospital diet: Discharge Diet Recommended Diet: Regular Diet Procedures Procedures Performed: Left Thumb Fractional Lengthening Flexor Pollicis Longus, Adductor Tenotomy; Left Hand Digits 2-5 Manipulation Under Anesthesia Pending Studies Studies pending at discharge: no Medical Emergencies . Who to Call and When: Medical Emergencies: If at any time you feel your situation is an emergency, please call 911 immediately. . Non-Emergent Contact Non-Emergency issues call your: Primary Care Provider . "Provider Documentation" section prepared by Yousif Huston. . VTE Core Measure Inpt VTE Proph given/why not?: Contraindicated
[2017-01-03 09:40] VITALS: BP 163/101; PULSE 90; TEMP 36.8; O2SAT 99
--- NOTE | 2017-01-03 09:49 | OPERATIVE REPORT ---
DATE OF OPERATION: 01/03/2017 PREOPERATIVE DIAGNOSES: 1. Left thumb spastic contracture. 2. Status post stroke. 3. Left thumb flexor pollicis longus contracture. 4. Left thumb adductor pollicis contracture. 5. Stiff digits left hand 2 through 5 at MP joint. 6. Contracture first webspace. POSTOPERATIVE DIAGNOSES: 1. Left thumb spastic contracture. 2. Status post stroke. 3. Left thumb flexor pollicis longus contracture. 4. Left thumb adductor pollicis contracture. 5. Stiff digits left hand 2 through 5 at MP joint. 6. Contracture first webspace. PROCEDURE: 1. Left flexor pollicis longus fractional lengthening. 2. Left adductor tenotomy. 3. Left manipulation under anesthesia digits 2 through 5 at MP joints. 4. Left thumb first webspace Z-plasty. INDICATIONS: This is a female status post stroke. She presents with thumb and palm deformity and she presents with difficulty with hygiene. She has no significant function actively of the thumb and does have persistent pain due to contracture. Plan is for contracture release to aid in hygiene and decrease in pain. She understands this will not improve her function significantly. The risks and benefits have been discussed including, but not limited to, risk of infection, nerve injury, stiffness, loss of motion, failure to improve, etc. The patient is agreeable and wishes to proceed. DESCRIPTION OF OPERATION: Following gentle manipulation maneuver with extension at the MP joints of digits 2 through 5, I was able to obtain increased extension of the digits. She did show significant active and passive tightness in the digits. I made a longitudinal incision over the FCR tendon on the distal aspect of the forearm. Dissection was carried down through the skin and subcutaneous tissue. The FCR tendon sheath was incised and the FCR was swept in an ulnar direction as well. The base of the sheath was incised and the FPL was identified at its musculotendinous junction. I performed 2 incisions in the tendon at its musculotendinous junction, performing fractional lengthening. I then was able to passively extend the thumb at both the MP and IP joints. I was able to obtain near full extension of the thumb and this did result in good correction of flexed posture of the thumb. Attention was focused on adduction contracture. I made a Z-plasty in the first webspace. I made a 2 limb 60-degree Z-plasty. Dissection was carried down through the skin and subcutaneous tissue. The adductor pollicis was identified and this showed significant contracture. I performed adductor pollicis tenotomy, incising the tendon from its insertion. I was able to get the thumb in an abducted posture after this. Tourniquet was let down, hemostasis was obtained with bipolar electrocautery. Z-plasty was closed and the flaps were transposed. This was closed with 4-0 Vicryl Rapide. The volar incision in the forearm was closed with 5-0 Monocryl and skin was closed with 4-0 Vicryl Rapide. The patient was placed in a thumb spica splint with the thumb in extension. The patient was sent to the PACU in stable condition. I attest to the content of the Intraoperative Record and any orders documented therein. Any exceptions are noted below. IVAN
[2017-01-03 10:05] VITALS: BP 175/109; PULSE 97; TEMP 36.8; O2SAT 98
--- NOTE | 2017-01-03 10:34 | Anesthesiology Progress Note ---
Anesthesia Post Op Note Date & Time Jan 03, 2017 at 10:33 Vital Signs Pain Intensity: 0 Vital Signs Past 12 Hours Date Time Temp Pulse Resp B/P (MAP) Pulse Ox O2 Delivery O2 Flow Rate FiO2 01/03/17 09:31 88 16 159/102 97 Nasal Cannula 2 01/03/17 09:25 87 16 165/105 97 Nasal Cannula 2 01/03/17 09:15 88 16 185/103 97 Nasal Cannula 2 01/03/17 09:05 36.2 78 16 161/105 97 Nasal Cannula 2 01/03/17 08:55 87 16 161/112 97 Oxymask 5 01/03/17 08:45 87 16 156/106 97 Oxymask 5 01/03/17 08:35 36.0 81 12 162/103 100 Oxymask 10 01/03/17 05:39 36.7 82 18 150/74 (99) 92 Room Air Notes Mental Status: alert / awake / arousable, participated in evaluation Pt Amnestic to Procedure: Yes Nausea / Vomiting: adequately controlled Pain: adequately controlled Airway Patency, RR, SpO2: stable & adequate BP & HR: stable & adequate Hydration State: stable & adequate Anesthetic Complications: no major complications apparent
[2017-01-03 10:40] VITALS: BP 178/109; PULSE 97; TEMP 36.4; O2SAT 100
== END | disposition home or self-care (01) ==
LOC: C.ACU 05:00
PROVIDERS: ATTEND Orthopaedic Surgery
DX: M24.542 Contracture, left hand (principal); Z86.73 Personal history of transient ischemic attack (TIA), and cerebral infarction without residual deficits; M19.90 Unspecified osteoarthritis, unspecified site; Z85.820 Personal history of malignant melanoma of skin; F32.9 Major depressive disorder, single episode, unspecified; I10 Essential (primary) hypertension; K21.9 Gastro-esophageal reflux disease without esophagitis; Z86.718 Personal history of other venous thrombosis and embolism; M21.371 Foot drop, right foot; M21.372 Foot drop, left foot; Z79.82 Long term (current) use of aspirin; Z87.891 Personal history of nicotine dependence; G20 Parkinson's disease